=== PATIENT | male | born 1935 | race Caucasian/White ===

== ENCOUNTER 2016-06-21 08:19 | Inpatient (IN) | payer MEDICARE, OTHER ==
[2016-06-21] MEDS ORDERED: IPRATROPIUM/ALBUTEROL 0.5/3 MG 3 ML AMPUL.NEB INHALATION ONE ×2 (08:37→10:01)
[2016-06-21 08:44] LABS: BASOPHIL# 0.1 X 10^3uL (0.0-0.1); BASOPHILS 0.7 % (0.0-2.0); EOSINOPHILS 2.8 % (0.0-6.0); EOSINOPHILS# 0.2 X 10^3uL (0.0-0.4); HEMATOCRIT 47.4 % (42.0-54.0); HEMOGLOBIN 16.2 g/dL (14.0-18.0); LYMPHOCYTES 23.6 % (20.0-40.0); MEAN CELL VOLUME 90.3 fL (80.0-100.0); MEAN CORPUS. HGB CONCENTRATION 34.2 g/dL (32.0-36.0); MEAN CORPUSCULAR HEMOGLOBIN 30.9 pg (29.0-35.0); MEAN PLATELET VOLUME 9.1 fL (7.4-10.4); MONOCYTES 8.9 % (2.0-10.0); MONOCYTES# 0.7 X 10^3uL (0.2-1.0); NEUTROPHILS# 5.4 X 10^3uL (2.6-6.7); PLATELET COUNT 196 X 10^3uL (130-440); RED BLOOD COUNT 5.24 X 10^6uL (4.20-6.10); RED CELL DISTRIBUTION WIDTH 12.8 % (11.5-14.5); WHITE BLOOD COUNT 8.4 X 10^3uL (3.9-10.7)
[2016-06-21 08:51] LABS: BLOOD UREA NITROGEN 41 mg/dL (9-20); CALCIUM 9.7 mg/dL (8.4-10.2); CHLORIDE 99 mmol/L (98-107); CREATININE 1.1 mg/dL (0.7-1.3); EST GLOMERULAR FILTRATION RATE > 60 mL/min; POTASSIUM 4.3 mmol/L (3.5-5.1); SODIUM 134 mmol/L (137-145)
[2016-06-21] MEDS ORDERED: METHYLPREDNISOLONE SOD 125 MG/2 ML VIAL ONE (08:54)
[2016-06-21 09:18] LABS: GLUCOSE 238 mg/dL (70-100)
[2016-06-21] MEDS ORDERED: ALBUTEROL 0.083% 2.5 MG/3 ML VIAL.NEB INHALATION ONE (09:20)
--- NOTE | 2016-06-21 10:05 | CT REPORT ---
HISTORY: Increased d-dimer COMPARISON: 08/01/2013 TECHNIQUE: This examination was performed using automated exposure control, adjustment of mA or kV according to patient size, and/or use of iterative reconstruction technique. Axial CT imaging from the thoracic i nlet through the upper abdomen following administration of IV contrast during peak opacification of t he pulmonary arteries, multiplanar reformatted and 3-D images are evaluated. 100cc Isovue 300 contrast. FINDINGS: The thoracic aorta appears normal. There is normal enhancement within the pulmonary arteries. No evid ence for pulmonary embolism. The pulmonary arteries are normal in size. There is mild cardiomegaly. There is no pericardial or pleural effusion. There is no abnormal adenopa thy. The upper abdominal structures are unremarkable. A small, 3 to 4 mm nodule in the right middle lobe is stable. There is mild dependent bibasilar atele ctasis. There is no focal consolidation. IMPRESSION: No evidence for pulmonary embolism. The thoracic aorta appears normal. There is moderate cardiomegaly. Right middle lobe 4 mm nodule is stable. Final Electronic Signature: This report was electronically signed by Shree Ervin MD on 06/21/2016 10 :03 AM. noé /
[2016-06-21] MEDS ORDERED: MAG-AL PLUS XS SUSP 30 ML UDC PO PRN (10:29)
[2016-06-21] MEDS ORDERED: ACETAMINOPHEN 325 MG TABLET PO PRN (10:29)
[2016-06-21] MEDS ORDERED: HOME MEDICATION LIST NEEDED 1 EA EACH MC ONE (10:29)
--- NOTE | 2016-06-21 11:46 | ER PHYSICIAN DOCUMENTATION ---
Physician Documentation [facility] Name:Joaquin Mckeon IV Age:81 yrs Sex:Male :1935 Arrival Date:06/21/2016 Time:08:19 Bed1 Private MD:John Medrano ED, Chris Disposition: 06/21 10:21 Critical Care: not applicable. cd 10:50 Chart complete. cd Disposition: 06/21/16 10:23 Admit ordered for Elle Monroe. Preliminary diagnosis are Dyspnea, Bronchospasm- Acute, Wheezing. - Bed requested for Medical/Surgical. - Condition is Fair. - Problem is an acute exacerbation. - Symptoms have improved. 23 HR OBS Yes HPI: 08:25 This 81 yrs old Male presents to ER via Private Vehicle with complaints of cd Breathing Difficulty. 08:25 The patient has shortness of breath at rest, that occurred at home, and the patient has cd a history of recent illness over the past month. The patient started with Flu-like symptoms, developed wheezing and shortness of breath. He was recently see by his PCP and placed on a Z-Pack and Prednisone without significant relief. Early this morning he became much worse while lying flat and his found him to be sitting up quite SOB. He has also been on MDI in the past, but does not have any CAD, Asthma or COPD history. The patient denies history of PE or CHF. He denies Lung Cancer or other lung disease.. Onset: The symptom(s)/episode began/occurred 1 month(s) ago, and became worse this morning. Duration: The symptoms are continuous, and are steadily getting worse. Associated signs and symptoms: Pertinent positives: productive cough, Pertinent negatives: chest pain, diaphoresis, fever, hemoptysis, vomiting. Severity of symptoms: At their worst the symptoms were moderate in the emergency department the symptoms are unchanged. The patient has experienced similar episodes in the past, multiple times, and the symptoms today are exactly the same, throughout the past month. Historical: - Allergies: Allopurinol; Lisinopril; - Home Meds: 1. Prednisone Oral 2. z-pack 3. losartan oral 4. testosterone buccal 5. Indomethacin Oral 6. tiotropium 7. sildenafil oral 8. Flonase Nasal 9. ProAir HFA inhalation 10. Gemfibrozil Oral 11. Colchicine Oral 12. Clonazepam Oral 13. Prilosec Oral 14. terazosin oral 15. Maxzide Oral 16. Metoprolol Tartrate Oral - PMHx: GOUT; CAD; HYPERTENSION; - PSHx: Bowel rescetion; APPENDECTOMY; Ortho repairs, multiple; - Tetanus: < 10 years. - Ebola Screening: : Patient denies exposure to infectious person. Patient denies travel to an Ebola-affected area in the 21 days before illness onset. . - Immunization history: Pneumococcal vaccine is up to date, Flu Vaccine < 1 year. - Social history: Smoking status: Patient states former smoker of tobacco. Patient uses alcohol occasionally. Patient/guardian denies using marijuana. ROS: 10:20 Eyes: Negative for injury, pain, redness, discharge, blurry vision and loss of vision. cd Neck: Negative for injury, pain, stiffness and swelling. Abdomen/GI: Negative for abdominal pain, nausea, vomiting, diarrhea, constipation, distension, melena, hematochezia and hematemesis. Back: Negative for injury, pain or muscle spasms. : Negative for injury, bleeding, discharge, swelling, dysuria, frequency or urgency. MS/Extremity: Negative for injury, deformity, edema, calf tenderness, pain or coldness. Skin: Negative for injury, rash, itching and discoloration. 10:20 Neuro: Negative for headache, weakness, numbness, tingling, and seizure. cd 10:20 Constitutional: Positive for poor PO intake, Negative for chills, fever. 10:20 ENT: Negative for ear pain, rhinorrhea, sinus congestion, sinus pain, sore throat. 10:20 Cardiovascular: Negative for chest pain, edema, palpitations. 10:20 Respiratory: Positive for cough, with white sputum, dyspnea on exertion, orthopnea, shortness of breath, wheezing, Negative for hemoptysis, pleurisy. 10:20 All other systems are negative. Exam: Head/Face: Normocephalic, atraumatic. Eyes: Pupils equal round and reactive to light, extra-ocular motions intact. Lids and lashes normal. Conjunctiva and sclera are non-icteric and not injected. Cornea within normal limits. Periorbital areas with no swelling, redness, or edema. ENT: Nares patent. No nasal discharge, no septal abnormalities noted. Tympanic membranes are normal and external auditory canals are clear. Oropharynx with no redness, swelling, or masses, exudates, or evidence of obstruction, uvula midline. Mucous membranes dry Neck: Trachea midline, no thyromegaly or masses palpated, and no cervical lymphadenopathy. Supple, full range of motion without nuchal rigidity, or vertebral point tenderness. No Meningismus. Chest/axilla: Normal chest wall appearance and motion. Nontender with no deformity. No lesions are appreciated. Abdomen/GI: Soft, non-tender, with normal bowel sounds. No distension or tympany. No guarding or rebound. No evidence of tenderness throughout. Back: No spinal tenderness. No costovertebral tenderness. Full range of motion. Skin: Warm, dry with normal turgor. Normal color with no rashes, no lesions, and no evidence of cellulitis. MS/ Extremity: Pulses equal, no cyanosis. Neurovascular intact. Full, normal range of motion. 10:30 Neuro: Awake and alert, GCS 15, oriented to person, place, time, and situation. cd Cranial nerves II-XII grossly intact. Motor strength 5/5 in all extremities. Sensory grossly intact. Cerebellar exam normal. Normal gait. 10:30 Constitutional: The patient appears alert, awake, non-diaphoretic, non-toxic, well developed, well nourished, anxious, in obvious distress, moderately distressed. 10:30 Cardiovascular: Rate: normal, Rhythm: regular, Pulses: no pulse deficits are appreciated, Heart sounds: normal, Edema: is not appreciated, JVD: is not appreciated. 10:30 Respiratory: moderate respiratory distress is noted, Respirations: labored breathing, that is mild, prolonged exhalation, that is moderate, pursed lip breathing, is not present, intercostal retractions, are absent, shallow respirations, that is mild, tachypnea, that is mild, Breath sounds: rales, are not appreciated, rhonchi, that are moderate, wheezing, that is moderate, is scattered, is heard diffusely, bronchial sounds, that are moderate, decreased breath sounds, are located in both bases. Vital Signs: 08:23 BP 147 / 88 (auto/); Pulse 66; Resp 24; Temp 97.7; Pulse Ox 93% on R/A; Pain 0/10; st 08:27 Pulse Ox 94% ; st 09:13 BP 152 / 78 (auto/); Pulse 59; st 09:17 Pulse Ox 99% ; st 09:45 BP 149 / 63 (auto/); Pulse 55; st 09:47 Pulse Ox 96% ; st 09:51 Pulse 69; Pulse Ox 91% on R/A; st 10:30 BP 157 / 80 (auto/); Pulse 49; st 10:32 Pulse Ox 94% ; st 11:43 Pulse 63; Resp 20; Pulse Ox 97% ; st 08:23 pt has a hx of a slower heart rate. st Lynnette Coma Score: 10:30 Eye Response: spontaneous(4). Verbal Response: oriented(5). Motor Response: obeys cd commands(6). Total: 15. MDM: 08:26 Patient medically screened. cd 08:30 Data interpreted: Pulse oximetry: on room air is 93 %. Interpretation: normal. cd 08:35 Differential diagnosis: asthma, Bronchitis CHF exacerbation, Chronic Obstructive cd Pulmonary Disease Myocardial Infarction pneumonia, pulmonary edema, Pulmonary Embolism reactive airway disease. 08:50 Physician consultation: Elle Monroe DO was called at 08:45, was contacted at 08:45, cd regarding admission, to the floor, consult, patient's condition, need to come to ED to see patient, and will see patient in ED, later today. Admission orders: after a detailed discussion of the patient's condition and case, the admit orders are written by me. 09:15 Test interpretation: by ED physician or midlevel provider: plain radiologic studies, cd CXR negative for any definite infiltrates, possible early LLL changes.. 10:00 The patient's pulmonary embolism risk score was calculated as follows: Total Score: 0-2 cd points. This patient was found to be at low risk for a pulmonary embolism by using the Well's assessment criteria. Data reviewed: vital signs, nurses notes, old medical records, and as a result, I will continue to observe the patient, administer IV fluids, NS bolus, NS maintenence, and give Duonebs, administer steroids, Solumedrol. 10:15 Counseling: I had a detailed discussion with the patient and/or guardian regarding: the cd historical points, exam findings, and any diagnostic results supporting the discharge/admit diagnosis, lab results, radiology results, the need for further work-up and treatment in the hospital. Response to treatment: the patient's symptoms have markedly improved after treatment, and as a result, I will admit patient. 10:15 ED course: After review of the chart, I see the patient is still on Metoprolol. He and cd his have complained of episodes of Bradycardia, where is pulse goes down into the 30's and low 40's. His reports that he becomes cranky during these episodes and feels weak and dizzy, but does not have any Chest Pain. His EKG reveals RBBB but is otherwise normal. His Troponin is normal. He continues to be on Metoprolol during his recent illness with Bronchospasm and wheezing. I discussed possibly holding the patient's Metoprolol while as an in-patient. This B-d[place] may be contributing to the patient's bronchospasm, bradycardia and Depression.. 10:25 Antibiotic administration: Not indicated, the patient does not have an appreciated cd infiltrate. 06/21 08:46 Order name: CBC AUTO DIF, MDIF/RMOR IF IND; Complete Time: 09:22 EDME 06/21 09:22 Interpretation: Normal. 06/21 09:19 Order name: BASIC METABOLIC PANEL; Complete Time: 09:22 EDME 06/21 09:22 Interpretation: Normal Except: GLUCOSE 238; BLOOD UREA NITROGEN 41; Hyperglycemia. 06/21 09:20 Order name: DDIMER; Complete Time: 09:22 EDME 06/21 09:22 Interpretation: Abnormal: DDIMER 503; Elevated. 06/21 09:44 Order name: INFLUENZA A/B; Complete Time: 10:21 EDME 06/21 10:10 Interpretation: Normal. 06/21 10:24 Order name: SPUTUM CULTURE AND GRAM STAIN [facility] 06/22 11:02 Interpretation: Abnormal: SPUTUM GRAM STAIN 2+ GRAM POSITIVE COCCI IN CHAINS; SPUTUM cd GRAM STAIN 1+ GRAM NEGATIVE BACILLI; SPUTUM GRAM STAIN 1+ WHITE BLOOD CELLS; SPUTUM CULTURE GRAM NEGATIVE BACILLUS. 06/21 11:16 Order name: TROPONIN I; Complete Time: 11:02 EDME 06/22 11:02 Interpretation: Normal. 06/21 10:08 Order name: CAT SCAN; CHEST ANGIO 24260; Complete Time: 10:21 EDMS 06/21 10:11 Interpretation: Normal Except: See Report. 06/21 08:34 Order name: Oxygen; Complete Time: 08:40 06/21 08:34 Order name: Pulse Ox Continuous; Complete Time: 08:40 cd 04 08:34 Order name: Iv Saline Lock; Complete Time: 08:40 cd 06/21 10:38 Order name: EKG - 12 Lead; Complete Time: 10:38 st Dispensed Medications: 08:25 Drug: DuoNeb (Albuterol 2.5 mg, Atrovent 0.5 mg); 3 ml; Route: Nebulizer; st 09:19 Follow up: Response: No change in condition st 08:45 Drug: NS 0.9% 1000 ml; Route: IV; Rate: 1000 bolus; Site: right antecubital; st 09:44 Follow up: IV Status: Completed infusion; IV Intake: 1000ml st 08:45 Drug: Solu-MEDROL 125 mg; Route: IVP; Site: right antecubital; st 09:13 Drug: Albuterol 2.5 mg; Route: Inhalation; st 09:51 Drug: DuoNeb (Albuterol 2.5 mg, Atrovent 0.5 mg); 3 ml; Route: Nebulizer; st 11:44 Follow up: Response: breathing easier st 09:52 Drug: NS 0.9% 1000 ml; Route: IV; Rate: 150 ml/hr; Site: right antecubital; st 11:44 Follow up: IV Status: Infusion continued upon admission st Signatures: Jazmin Ames, RN RN Kian Arevalo MD MD cd
--- NOTE | 2016-06-21 11:46 | ER NURSING DOCUMENTATION ---
Nurse's Notes [facility] Name:Joaquin Mckeon IV Age:81 yrs Sex:Male :1935 Arrival Date:06/21/2016 Time:08:19 Bed1 Private MD:John Medrano Diagnosis:Dyspnea;Bronchospasm- Acute;Wheezing Presentation: 06/21 08:20 Presenting complaint: Patient states: pt has had a cough for 2-3 weeks. he has been on st a Z-pack and prednisone but is getting worst not better. Last night pt could not lay flat to sleep and he feels SOB. 08:20 Transition of care: Home. st 08:20 Method Of Arrival: Private Vehicle st 08:24 Acuity: RACHEAL 3 st Triage Assessment: 08:20 General: Appears uncomfortable, Behavior is cooperative. Pain: Denies pain. Neuro: No st deficits noted. Cardiovascular: Capillary refill < 3 seconds Heart tones present. Respiratory: Airway is patent Respiratory effort is even, labored, Respiratory pattern is regular, symmetrical, Breath sounds are diminished bilaterally. Breath sounds with wheezes bilaterally. Reports shortness of breath at rest on exertion cough that is non-productive, Onset: The symptoms/episode began/occurred pt has had the cough for 2-3 weeks but the SOB is new. , the patient has moderate shortness of breath. GI: No deficits noted. : No deficits noted. Historical: - Allergies: Allopurinol; Lisinopril; - Home Meds: 1. Prednisone Oral 2. z-pack 3. losartan oral 4. testosterone buccal 5. Indomethacin Oral 6. tiotropium 7. sildenafil oral 8. Flonase Nasal 9. ProAir HFA inhalation 10. Gemfibrozil Oral 11. Colchicine Oral 12. Clonazepam Oral 13. Prilosec Oral 14. terazosin oral 15. Maxzide Oral 16. Metoprolol Tartrate Oral - PMHx: GOUT; CAD; HYPERTENSION; - PSHx: Bowel rescetion; APPENDECTOMY; Ortho repairs, multiple; - Tetanus: < 10 years. - Ebola Screening: : Patient denies exposure to infectious person. Patient denies travel to an Ebola-affected area in the 21 days before illness onset. . - Immunization history: Pneumococcal vaccine is up to date, Flu Vaccine < 1 year. - Social history: Smoking status: Patient states former smoker of tobacco. Patient uses alcohol occasionally. Patient/guardian denies using marijuana. Screenin:17 Infectious Disease Risk None. Abuse screen: Denies threats or abuse. Denies injuries st from another. pt feels safe at home. Nutritional screening: No deficits noted. Assessment: 09:12 General: lungs remain tight. . st 09:49 General: pt continues to be tight and wheezy . st 11:42 General: pt is still tight but is not working hard to breath any more.. st Vital Signs: 08:23 BP 147 / 88 (auto/); Pulse 66; Resp 24; Temp 97.7; Pulse Ox 93% on R/A; Pain 0/10; st 08:27 Pulse Ox 94% ; st 09:13 BP 152 / 78 (auto/); Pulse 59; st 09:17 Pulse Ox 99% ; st 09:45 BP 149 / 63 (auto/); Pulse 55; st 09:47 Pulse Ox 96% ; st 09:51 Pulse 69; Pulse Ox 91% on R/A; st 10:30 BP 157 / 80 (auto/); Pulse 49; st 10:32 Pulse Ox 94% ; st 11:43 Pulse 63; Resp 20; Pulse Ox 97% ; st 08:23 pt has a hx of a slower heart rate. st Alma Coma Score: 10:30 Eye Response: spontaneous(4). Verbal Response: oriented(5). Motor Response: obeys cd commands(6). Total: 15. ED Course: 08:20 Patient arrived in ED. ama 08:20 John Medrano MD is Private Physician. ama 08:20 Valuables Remains with patient Patient has correct armband on for positive st identification. Bed in low position. Call light in reach. Pulse ox on. NIBP on. 08:24 Jazmin Ames RN is Primary Nurse. st 08:[address] 08:26 Kian William MD is Attending Physician. cd 08:33 Inserted peripheral IV: 20 gauge in right antecubital area and blood collected. st 08:36 Port Xray Completed. pm1 09:[address] 09:[address] 09:[address] francisca 09:51 Patient moved back from [address]. francisca 09:58 Oxygen Oxygen administration via nasal cannula @ 2L/min. st 10:21 Elle Monroe DO is Admitting Physician. cd 10:38 EKG done per protocol. Performed by ED Staff. Shown to ED physician. st Administered Medications: 08:25 Drug: DuoNeb (Albuterol 2.5 mg, Atrovent 0.5 mg); 3 ml; Route: Nebulizer; st 09:19 Follow up: Response: No change in condition st 08:45 Drug: NS 0.9% 1000 ml; Route: IV; Rate: 1000 bolus; Site: right antecubital; st 09:44 Follow up: IV Status: Completed infusion; IV Intake: 1000ml st 08:45 Drug: Solu-MEDROL 125 mg; Route: IVP; Site: right antecubital; st 09:13 Drug: Albuterol 2.5 mg; Route: Inhalation; st 09:51 Drug: DuoNeb (Albuterol 2.5 mg, Atrovent 0.5 mg); 3 ml; Route: Nebulizer; st 11:44 Follow up: Response: breathing easier st 09:52 Drug: NS 0.9% 1000 ml; Route: IV; Rate: 150 ml/hr; Site: right antecubital; st 11:44 Follow up: IV Status: Infusion continued upon admission st Intake: 09:44 IV: 1000ml; Total: 1000ml. st Outcome: 10:23 Decision to Admit by Provider. cd 11:41 Admitted to Med/surg accompanied by nurse, via stretcher, with oxygen. st 11:41 Condition: improved 11:41 Report given to Tom RN 11:41 Instructed on need to admit 11:45 Patient [address] the ED. st Signatures: Jazmin Ames, RN RN Kian Arevalo MD MD cd Abbott, Rochelle Loyd pm1 Chris Avalos, Reg Reg ama
[2016-06-21] MEDS: IPRATROPIUM/ALBUTEROL 0.5/3 MG 3 ML AMPUL.NEB INHALATION SCH ×4 (12:46→23:51)
[2016-06-21] MEDS: NORMAL SALINE 1,000 ML IV SCH ×2 (12:46→18:55)
[2016-06-21] MEDS ORDERED: ALBUTEROL HFA 1 INH INHALER INHALATION PRN ×2 (12:46→14:18)
[2016-06-21] MEDS ORDERED: DEXTROSE 50% WATER 25 GM/50 ML SYR IV PRN (12:54)
[2016-06-21] MEDS ORDERED: O2 HUMIDIFIER 650 ML BOTTLE INHALATION ONE (14:47)
[2016-06-21] MEDS ORDERED: METHYLPREDNISOLONE SOD 125 MG/2 ML VIAL IV SCH (15:00)
[2016-06-21] MEDS ORDERED: INSULIN LISPRO 100 UNIT/ML ML SUBCUT SCH ×2 (17:00→20:00)
--- NOTE | 2016-06-21 17:21 | HISTORY & PHYSICAL ---
DATE OF ADMISSION: 06/21/16 ATTENDING PHYSICIAN: Elle Monroe MD PRIMARY CARE PHYSICIAN: John Medrano MD CHIEF COMPLAINT: Shortness of breath. HISTORY OF PRESENT ILLNESS: The patient is a 81-year-old gentleman who was seen in our clinic on 06/02/16 and 06/17/16 for URI/bronchitis complaints. Patient and states that he has had minimal improvement in symptoms and has had progressive decline and worsening in symptoms throughout this time frame. After his first evaluation, it was felt it was likely viral etiology and he was continuing to monitor his symptoms but they did significantly worsen and was evaluated this week and started on a Azithromycin and steroid burst. Patient states that he had minimal change in his symptoms since that visit and this morning, when his awoke, she found him sitting up in bed wheezing and having some difficulties breathing. At that time, they discussed his symptoms and his ongoing concerns and they decided to come into the Emergency Room for further evaluation. notes that this last month, he has had significant increase fatigue and change in his typical personality, and he has been seeming a little bit more off , especially increased crankiness and other symptoms. He does have home inhalers as Spiriva and Albuterol but patient states that he does not truly have a diagnosis of COPD but has had chronic shortness of breath and cough in the past. Interestingly, patient has had an evaluation for fluctuating heart rate over the last year. About 1 year ago he was trying to give blood and was denied because his heart rate was so low. He did have follow up with Dr. Medrano and Dr. Conley who did Holter evaluation and noted some PVCs and PACs. He was started on Metoprolol and had some improvement in the irregularities but still ongoing symptoms, so his dose was increased, and he was told to follow up within a year. In the Emergency Room today, his heart rate was noted to be as low as 35 and would jump up to the 90s and pretty variable. Definitely bradycardia could be a contributing factor to his worsening fatigue as well as his potential bronchospasms and respiratory concern. PAST MEDICAL HISTORY 1. PVCs and PACs. 2. History of obstructive sleep apnea, patient does not use a CPAP machine. 3. Restless legs. 4. Hypotestosteronism. 5. Hyperlipidemia, triglyceridemia. 6. Gastroesophageal reflux disease. 7. Gout. 8. Osteoarthritis. 9. Hypertension. PAST SURGICAL HISTORY 1. Right neck mass 2014. 2. Hemicolectomy 2009. 3. Right middle finger 2005 4. Right foot 2005. 5. Appendectomy that was ruptured in 1994. 6. Right knee 1957. SOCIAL HISTORY: to his Hermila who is here today. He is a former smoker. He does have an alcohol history of 1-2 glasses per night. FAMILY HISTORY: Father at age 96 related to hypertension. Mother at 87. Sister had palate cancer and lymphoma. MEDICATIONS: 1. Prednisone 5mg, 7 daily then taper down (was started on 06/17)- patient was to take 15mg today 2. Azithromycin on day 06/18 3. Maxaide 37.5/25 1 po daily 4. Prilosec 20 po daily 5. Metoprolol tartrate 50mg daily 6. Spriva every morning 7. Clonazepam 0.5mg po qhs (RLS) 8. Colchicine-Probenecid daily 9. Gemfibrozil 600 mg bid 10. Proair 2 puffs inhaled as needed 11. Flonase daily 12. Indomethacin prn gout 13. Sildenafil 100mg prn 14. Testosterone replacement ALLERGIES: Lisinopril, Andoderm patch, Allopurinol REVIEW OF SYSTEMS GENERAL: Most notable for fatigue and malaise. No true fevers or chills. HEENT: No headache. No visual changes. No sore throat. NECK: No significant pain. RESPIRATORY: Positive for cough, shortness of breath or wheezing. He has had minimal sputum production but was able to produce sputum today in the Emergency Room. CARDIOVASCULAR: Notable for irregular heart rate in between bradycardia and then skipped beats at times. Patient denies any chest pain. ABDOMEN: No abdominal upset related to medications. No diarrhea or medications. EXTREMITIES: No rash or edema. NEURO: No focal neurological changes. PSYCHIATRIC: Patient has noted to be a little bit more fatigued as well as cranky and irritable recently. LABORATORY DATA: Patient had a CBC which showed a white count of 8.4, hemoglobin 16.2, hematocrit 47.4, platelets of 196. BMP showed a sodium of 134, potassium 4.3, chloride 99, bicarb 25, BUN 41, creatinine 1.1, glucose of 238. A D-Dimer was elevated at 503 and influenza A and B negative. Troponin less than 0.12. Patient had a chest x-ray with no focal findings. He did have a CT chest related to his elevated D-Dimer which showed no pulmonary embolism. He had mild cardiomegaly and a stable right middle lobe nodule that was 4 mm. Sputum culture so far was 2+ gram positive cocci and chains and 1+ gram negative bacilli. PHYSICAL EXAMINATION VITAL SIGNS: Temperature 36.6, blood pressure 136/82, pulse 60, respiratory rate 20 and he is 95% on 2 liters. He was noted to be about 91% on room air. GENERAL: In no acute distress. He is sitting comfortably in the bed and talking in full sentences. No respiratory distress noted. HEENT: Oropharynx is clear. Moist mucous membranes. NECK: Supple no lymphadenopathy noted. CARDIOVASCULAR: Normal S1, S2. No murmur appreciated. RESPIRATORY: Patient has no increased respiratory rate at this time. He was not having any retractions. His exam is consistent with bilateral and expiratory wheezing and tightness. ABDOMEN: Soft, nontender, nondistended. EXTREMITIES: Moves all extremities without difficulties and no edema noted. NEUROLOGIC: Patient is grossly nonfocal. PSYCHIATRIC: He is alert and oriented x3. Normal mood and normal affect. ASSESSMENT/PLAN: This is a 81-year-old gentleman with a history of hypertension , hyperlipidemia, cardiac arrhythmia, presenting with greater than 5 weeks of an URI bronchitis symptoms that is failing outpatient therapy. 1. Bronchitis. No focal pneumonia was noted on either chest x-ray or CT of chest , but he does have 2+ gram positive cocci and chains and 1+ gram negative bacilli in his sputum culture. He has completed about 4 of the 5 days of Azithromycin as an outpatient and ongoing symptoms. He was given dose of Ceftriaxone in the Emergency Department. Will continue to monitor to see if we need to further broaden coverage based on symptoms as well as sputum. He does have blood cultures pending, but if he does spike a fever, will need blood cultures. Will monitor patient in observation status in the hospital in hopes to transition to potential different oral agent for treatment. 2. Wheezing and bronchospasm. Patient states that he does not have a history of chronic obstructive pulmonary disease or asthma, although he does have home inhalers and Spiriva. Minimal improvement in his symptoms with his home inhalers , but has had some significant change based on the Duoneb therapy in the Emergency Department. Will continue Duoneb q.4 and have additional Albuterol ordered as needed. Will transition his oral Prednisone to IV Solu-Medrol and monitor his response. With his progressive symptoms over this last month, told patient will need to closely monitor and anticipate that he may need more than 1 night stay. 3. Hyponatremia. This is likely just secondary to dehydration. Will encourage p.o. fluids and IV and again replete with IV fluids. 4. Elevated D-Dimer. Again likely related to acute illness. CT pulmonary embolism was negative. 5. Elevated glucose. This is likely secondary to the recent Prednisone burst. Patient does not have history of diabetes. I have ordered for additional glucose testing and sliding scale insulin ordered since he was started on IV Solu-Medrol for additional respiratory support. May need to monitor steroid dose pending ongoing sugars. Hemoglobin A1c ordered. 6. Bradycardia with history of PACs and PVCs. Patient is currently on Metoprolol 50 mg and his heart rate has been noted to be rather low in the Emergency Department. This bradycardia could be contributing to some of his symptoms as well as beta-blockade could be making his breathing issues slightly worse. Will hold his Metoprolol at this time and monitor patient on telemetry. Did discuss that with the Albuterol treatments, this can increase the heart and if progressively worsening, may need to restart at a lower dose. If patient is still here on Thursday, could ask for Cardiology at that time, as he has seen Dr. Conley for this problem in the past. 7. Restless leg syndrome. Will continue his Clonazopam at night. 8. Hyperlipidemia. Patient is on Gemfibrozil. Since this is not formulary will hold and have him restart as an outpatient. 9. Gout. Currently not having symptoms. Is on a steroid burst, but will continue his home medications. 10. Prophylaxis. Will treatment with Lovenox. Copies to: John Medrano MD [email or web address]
[2016-06-21] MEDS: TERAZOSIN HCL 5 MG CAPSULE PO SCH (20:16)
[2016-06-21] MEDS: clonazePAM 0.5 MG TABLET PO SCH (20:16)
[2016-06-21] MEDS: INSULIN LISPRO 100 UNIT/ML ML SUBCUT SCH (22:00)
[2016-06-21] MEDS: METHYLPREDNISOLONE SOD 125 MG/2 ML VIAL IV SCH (22:57)
[2016-06-22] MEDS: METHYLPREDNISOLONE SOD 125 MG/2 ML VIAL IV SCH ×4 (05:07→21:19)
[2016-06-22] MEDS: IPRATROPIUM/ALBUTEROL 0.5/3 MG 3 ML AMPUL.NEB INHALATION SCH ×5 (05:07→20:20)
[2016-06-22 06:34] LABS: BASOPHILS 0.1 % (0.0-2.0); HEMATOCRIT 46.5 % (42.0-54.0); HEMOGLOBIN 15.4 g/dL (14.0-18.0); LYMPHOCYTES 7.1 % (20.0-40.0); LYMPHOCYTES# 0.6 X 10^3uL (0.8-3.8); MEAN CELL VOLUME 91.3 fL (80.0-100.0); MEAN CORPUS. HGB CONCENTRATION 33.1 g/dL (32.0-36.0); MEAN CORPUSCULAR HEMOGLOBIN 30.2 pg (29.0-35.0); MEAN PLATELET VOLUME 9.3 fL (7.4-10.4); MONOCYTES 1.9 % (2.0-10.0); MONOCYTES# 0.2 X 10^3uL (0.2-1.0); NEUTROPHILS# 7.6 X 10^3uL (2.6-6.7); PLATELET COUNT 159 X 10^3uL (130-440); RED BLOOD COUNT 5.09 X 10^6uL (4.20-6.10); RED CELL DISTRIBUTION WIDTH 13.1 % (11.5-14.5); WHITE BLOOD COUNT 8.4 X 10^3uL (3.9-10.7)
[2016-06-22 06:50] LABS: A/G RATIO 1.4; ALBUMIN 3.9 g/dL (3.5-5.0); ALKALINE PHOSPHATASE 70 U/L (38-126); ALT 34 U/L (21-72); AST 21 U/L (17-59); BILIRUBIN, TOTAL 0.8 mg/dL (0.2-1.3); BLOOD UREA NITROGEN 35 mg/dL (9-20); CALCIUM 8.8 mg/dL (8.4-10.2); CHLORIDE 105 mmol/L (98-107); CREATININE 0.9 mg/dL (0.7-1.3); EST GLOMERULAR FILTRATION RATE > 60 mL/min; POTASSIUM 4.2 mmol/L (3.5-5.1); SODIUM 134 mmol/L (137-145); TOTAL PROTEIN 6.7 g/dL (6.3-8.2)
[2016-06-22 07:00] LABS: GLUCOSE 278 mg/dL (70-100)
[2016-06-22 07:06] LABS: NEUTROPHILS 90.9 % (54.0-75.0)
[2016-06-22] MEDS: INSULIN LISPRO 100 UNIT/ML ML SUBCUT SCH ×4 (07:44→21:19)
[2016-06-22] MEDS: ENOXAPARIN SODIUM 40 MG/0.4 ML SYR SUBCUT SCH (08:30)
[2016-06-22] MEDS: HCTZ PO SCH (08:30)
[2016-06-22] MEDS: TRIAMTERENE PO SCH (08:30)
[2016-06-22] MEDS ORDERED: TRIAMTERENE PO SCH (09:00)
[2016-06-22] MEDS ORDERED: PROBENECID PO SCH (09:00)
[2016-06-22] MEDS ORDERED: HCTZ PO SCH (09:00)
[2016-06-22] MEDS ORDERED: cefTRIAXone SODIUM 1,000 MG/10 ML VIAL IV SCH (09:00)
[2016-06-22] MEDS ORDERED: COLCHICINE PO SCH (09:00)
[2016-06-22] MEDS: [UNRECOGNIZED DRUG - REMARK] PO SCH (09:37)
[2016-06-22] MEDS: NORMAL SALINE MINI IV SCH (09:42)
[2016-06-22] MEDS: CEFTRIAXONE SODIUM IV SCH (09:42)
--- NOTE | 2016-06-22 10:47 | PROGRESS NOTE: IM APSO ---
Assessment and Plan - Date of Encounter Date of Encounter: 06/22/16 (1) Bronchitis Status: Acute Assessment and plan: Patient was treated with 4 days of azithromycin and prednisone as outpatient with minimal change in symptoms. Sputum culture today growing gram negative bacillus. I will start ceftriaxone, as patient has no significant risk factors for psuedomonas (if however not responding or culture indicating, will need change in antibiotics for coverage). Decreased solumedrol from 125mg to 60 mg due to ongoing hyperglycemia and is continuing to respond to therapy. At this time still needing q4 hour nebs. Goal to continue current managment plan and transition to oral agents when appropriate. Anticipate d/c in 1-2 days pending ongoing response and cultures. Current Visit: Yes (2) Wheezing Status: Acute Assessment and plan: patient with chronic history of cough/shortness of breath and has seen pulmonology in past. No clear diagnosis of COPD or asthma but does have spiriva and albuterol inhalers as outpatient. Current infection with obvious flare in reactive airway. Slowly responding to steroids/neb treatments. Continue aggressive management today in hopes to transition to oral regimen in next few days. Current Visit: Yes (3) Hyperglycemia Status: Acute Assessment and plan: Likely related to current steroids (has been on steroids since 06/17/16). BS over 400/500 however with 125mg dose of solumedrol- sliding scale insulin in place. with decrease in solumedrol to 60mg BS now more in the 200-300 range but still elevated. Interestingly brought in recent rheumatology labs with a BS of 175 from 06/16 (prior to steroids). Hemoglobin A1c is pending. Current Visit: Yes (4) Hyponatremia Status: Acute Assessment and plan: Mild- Likely related to hospitalization/fluids/medications. Did have normal sodium on 06/16/16. Is on triamterene/hctz- may need adjustment in diuretic if ongoing hyponatremia. Continue to monitor. Current Visit: Yes (5) Bradycardia Status: Chronic Assessment and plan: Ongoing variable pulse with admission. have held BB and HR today more in 70- 90s rather than the low of 35 noted yesterday in ED. with ongoing nebulizer treatments do anticipate some tachycardia. May need to restart metoprolol at lower dose. Current Visit: Yes (6) Gout Status: Chronic Assessment and plan: no concerns, have continued home meds. Current Visit: Yes (7) Restless leg syndrome Status: Chronic Assessment and plan: continue home meds Current Visit: Yes - Time Spent With Patient Total time spent with greater than 50% in coordination of care (as documented) at patient's floor/unit and/or counseling patient: Greater than 35 minutes Estimated anticipated discharge: 1-2 days IM: PN Subjective Interval history: Feeling better than yesterday but with ongoing wheezing and hyperglycemia General: fatigue, no fever, no chills HEENT: no headache, no sore throat Cardiovascular: no chest pain, no palpitations, no dizziness Respiratory: cough, sputum, wheeze, SOB (improved) Gastrointestinal: abdominal pain, vomiting, no nausea, no diarrhea Musculoskeletal: no pain Integumentary: no rashes Neurological: no headache IM: PN Objective Exam - I&O/Vital Signs I&O: Intake & Output 06/21/16 06/22/16 06/22/16 21:59 05:59 13:59 Intake Total 800 2300 Output Total 750 1000 Balance 50 1300 Weight 78 kg Intake: IV 1100 Right Antecubital 1100 Oral 800 1200 Output: Urine 750 1000 Other: Urine Appearance Clear Clear Urine Color Yellow Yellow Voiding Method Urinal Toilet # Voids 3 # Bowel Movements 0 Vital Signs: Last Vital Signs Temp 36.6 C 06/22/16 06:54 Pulse 95 H 06/22/16 08:00 Resp 20 06/22/16 06:54 BP 141/78 06/22/16 06:54 Pulse Ox 92 06/22/16 10:29 Oxygen Flow Rate 2 Oxygen Delivery Method Nasal Cannula - Constitutional General appearance: Present: cooperative. Absent: acute distress - Head Head exam: Present: atraumatic, normal inspection - Eye Eye exam: Present: EOMI. Absent: conjunctival injection - ENT ENT exam: Present: mucous membranes moist, normal oropharynx - Neck Neck exam: Present: normal inspection - Respiratory Respiratory exam: Present: prolonged expiratory phase, wheezes. Absent: accessory muscle use, respiratory distress - Cardiovascular Cardiovascular exam: Present: RRR - GI/Abdominal GI/Abdominal exam: Present: soft. Absent: tenderness - Neurological Exam Neurological exam: Present: alert, oriented X3 - Psychiatric Psychiatric exam: Present: normal affect, normal mood - Skin Skin exam: Absent: rash - Allied Health Notes Allied health notes reviewed: nursing - Lab Labs: Laboratory Last Values WBC 8.4 X 10^3uL (3.9-10.7) 06/22/16 06:20 RBC 5.09 X 10^6uL (4.20-6.10) 06/22/16 06:20 Hgb 15.4 g/dL (14.0-18.0) 06/22/16 06:20 Hct 46.5 % (42.0-54.0) 06/22/16 06:20 MCV 91.3 fL (80.0-100.0) 06/22/16 06:20 MCH 30.2 pg (29.0-35.0) 06/22/16 06:20 MCHC 33.1 g/dL (32.0-36.0) 06/22/16 06:20 RDW 13.1 % (11.5-14.5) 06/22/16 06:20 Plt Count 159 X 10^3uL (130-440) 06/22/16 06:20 MPV 9.3 fL (7.4-10.4) 06/22/16 06:20 Neutrophils % 90.9 % (54.0-75.0) H 06/22/16 06:20 Lymphocytes % 7.1 % (20.0-40.0) L 06/22/16 06:20 Eosinophils % 0.0 % (0.0-6.0) 06/22/16 06:20 Basophils % 0.1 % (0.0-2.0) 06/22/16 06:20 Neutrophils # 7.6 X 10^3uL (2.6-6.7) H 06/22/16 06:20 Lymphocytes # 0.6 X 10^3uL (0.8-3.8) L 06/22/16 06:20 Monocytes 1.9 % (2.0-10.0) L 06/22/16 06:20 Monocytes # 0.2 X 10^3uL (0.2-1.0) 06/22/16 06:20 Eosinophils # 0.0 X 10^3uL (0.0-0.4) 06/22/16 06:20 Basophils # 0.0 X 10^3uL (0.0-0.1) 06/22/16 06:20 D-Dimer 503 ng/mL H* 06/21/16 08:05 Sodium 134 mmol/L (137-145) L 06/22/16 06:20 Potassium 4.2 mmol/L (3.5-5.1) 06/22/16 06:20 Chloride 105 mmol/L (98-107) 06/22/16 06:20 Carbon Dioxide 19 mmol/L (22-30) L 06/22/16 06:20 BUN 35 mg/dL (9-20) H 06/22/16 06:20 Creatinine 0.9 mg/dL (0.7-1.3) 06/22/16 06:20 GFR Calculation > 60 mL/min 06/22/16 06:20 Glucose 278 mg/dL (70-100) H 06/22/16 06:20 Calcium 8.8 mg/dL (8.4-10.2) 06/22/16 06:20 Total Bilirubin 0.8 mg/dL (0.2-1.3) 06/22/16 06:20 AST 21 U/L (17-59) 06/22/16 06:20 ALT 34 U/L (21-72) 06/22/16 06:20 Alkaline Phosphatase 70 U/L (38-126) 06/22/16 06:20 Troponin I < 0.012 ng/mL (0.00-0.034) 06/22/16 06:20 Total Protein 6.7 g/dL (6.3-8.2) 06/22/16 06:20 Albumin 3.9 g/dL (3.5-5.0) 06/22/16 06:20 Albumin/Globulin Ratio 1.4 06/22/16 06:20 Influenza Types A,B Ag Inf a & b negative 06/21/16 09:20 Impressions: Sputum culture growing gram negative bacillus Quality Questions - VTE Prophylaxis Assessment VTE Present on Admission?: No Patient at risk for venous thromboembolism?: Yes VTE Risk Level: High Risk Pharmaceutical VTE prophylaxis contraindication reason: N/A- VTE prophylaxsis ordered Mechanical VTE prophylaxis contraindication reason: N/A- VTE prophylaxsis ordered
[2016-06-22] MEDS: NORMAL SALINE 1,000 ML IV SCH (16:12)
[2016-06-22] MEDS ORDERED: NORMAL SALINE 1,000 ML IV SCH (19:19)
[2016-06-22] MEDS: TERAZOSIN HCL 5 MG CAPSULE PO SCH (20:20)
[2016-06-22] MEDS: clonazePAM 0.5 MG TABLET PO SCH (20:20)
[2016-06-23] MEDS: IPRATROPIUM/ALBUTEROL 0.5/3 MG 3 ML AMPUL.NEB INHALATION SCH ×6 (00:58→19:43)
[2016-06-23] MEDS: METHYLPREDNISOLONE SOD 125 MG/2 ML VIAL IV SCH (03:45)
[2016-06-23] MEDS: PANTOPRAZOLE 40 MG TABLET PO SCH (06:31)
[2016-06-23 06:42] LABS: BASOPHIL# 0.1 X 10^3uL (0.0-0.1); BASOPHILS 0.7 % (0.0-2.0); HEMATOCRIT 45.5 % (42.0-54.0); HEMOGLOBIN 15.4 g/dL (14.0-18.0); LYMPHOCYTES 4.8 % (20.0-40.0); LYMPHOCYTES# 0.6 X 10^3uL (0.8-3.8); MEAN CELL VOLUME 90.9 fL (80.0-100.0); MEAN CORPUS. HGB CONCENTRATION 33.8 g/dL (32.0-36.0); MEAN CORPUSCULAR HEMOGLOBIN 30.8 pg (29.0-35.0); MEAN PLATELET VOLUME 9.2 fL (7.4-10.4); MONOCYTES 3.9 % (2.0-10.0); MONOCYTES# 0.4 X 10^3uL (0.2-1.0); NEUTROPHILS# 10.4 X 10^3uL (2.6-6.7); PLATELET COUNT 156 X 10^3uL (130-440); RED CELL DISTRIBUTION WIDTH 13.2 % (11.5-14.5); WHITE BLOOD COUNT 11.5 X 10^3uL (3.9-10.7)
[2016-06-23 06:49] LABS: NEUTROPHILS 90.6 % (54.0-75.0)
[2016-06-23 07:01] LABS: BLOOD UREA NITROGEN 28 mg/dL (9-20); CALCIUM 8.6 mg/dL (8.4-10.2); CHLORIDE 106 mmol/L (98-107); CREATININE 0.8 mg/dL (0.7-1.3); EST GLOMERULAR FILTRATION RATE > 60 mL/min; POTASSIUM 3.9 mmol/L (3.5-5.1); SODIUM 133 mmol/L (137-145)
[2016-06-23 07:22] LABS: GLUCOSE 305 mg/dL (70-100)
[2016-06-23] MEDS: ENOXAPARIN SODIUM 40 MG/0.4 ML SYR SUBCUT SCH (08:07)
[2016-06-23] MEDS: HCTZ PO SCH (08:07)
[2016-06-23] MEDS: TRIAMTERENE PO SCH (08:07)
[2016-06-23] MEDS: INSULIN LISPRO 100 UNIT/ML ML SUBCUT SCH ×4 (08:08→20:38)
[2016-06-23] MEDS: [UNRECOGNIZED DRUG - REMARK] PO SCH (08:08)
[2016-06-23] MEDS: CEFTRIAXONE SODIUM IV SCH (08:09)
[2016-06-23] MEDS: NORMAL SALINE MINI IV SCH (08:09)
[2016-06-23] MEDS ORDERED: NORMAL SALINE 1,000 ML IV SCH (09:16)
[2016-06-23] MEDS ORDERED: POLYETHYLENE GLYCOL 3350 17 GM POWD.PACK PO PRN (09:39)
[2016-06-23] MEDS ORDERED: METHYLPREDNISOLONE SOD 125 MG/2 ML VIAL IV SCH (10:00)
[2016-06-23] MEDS: METHYLPREDNISOLONE SOD IV SCH ×3 (10:01→21:34)
[2016-06-23] MEDS ORDERED: BENZOCAINE/MENTHOL 1 EACH LOZENGE PO PRN (15:36)
--- NOTE | 2016-06-23 17:10 | PROGRESS NOTE: IM SOAP ---
IM: PN Subjective Cardiovascular: no chest pain, no palpitations, no dizziness Respiratory: cough (improving), wheeze (improving), SOB (improved), no sputum Gastrointestinal: no abdominal pain, no nausea, no vomiting, no diarrhea IM: PN Objective Exam - I&O/Vital Signs Vital Signs: Last Vital Signs Temp 37.0 C 06/23/16 15:00 Pulse 95 H 06/23/16 15:00 Resp 16 06/23/16 15:00 BP 132/76 06/23/16 15:00 Pulse Ox 91 06/23/16 15:00 Oxygen Flow Rate 1 Oxygen Delivery Method Room Air - Respiratory Respiratory exam: Present: clear. Absent: rales, rhonchi, wheezes - Cardiovascular Cardiovascular exam: Present: RRR. Absent: systolic murmur - GI/Abdominal GI/Abdominal exam: Present: soft. Absent: tenderness - Extremities Exam Extremities exam: Absent: calf tenderness, edema - Lab Labs: Laboratory Last Values WBC 11.5 X 10^3uL (3.9-10.7) H 06/23/16 06:30 RBC 5.00 X 10^6uL (4.20-6.10) 06/23/16 06:30 Hgb 15.4 g/dL (14.0-18.0) 06/23/16 06:30 Hct 45.5 % (42.0-54.0) 06/23/16 06:30 MCV 90.9 fL (80.0-100.0) 06/23/16 06:30 MCH 30.8 pg (29.0-35.0) 06/23/16 06:30 MCHC 33.8 g/dL (32.0-36.0) 06/23/16 06:30 RDW 13.2 % (11.5-14.5) 06/23/16 06:30 Plt Count 156 X 10^3uL (130-440) 06/23/16 06:30 MPV 9.2 fL (7.4-10.4) 06/23/16 06:30 Neutrophils % 90.6 % (54.0-75.0) H 06/23/16 06:30 Lymphocytes % 4.8 % (20.0-40.0) L 06/23/16 06:30 Eosinophils % 0.0 % (0.0-6.0) 06/23/16 06:30 Basophils % 0.7 % (0.0-2.0) 06/23/16 06:30 Neutrophils # 10.4 X 10^3uL (2.6-6.7) H 06/23/16 06:30 Lymphocytes # 0.6 X 10^3uL (0.8-3.8) L 06/23/16 06:30 Monocytes 3.9 % (2.0-10.0) 06/23/16 06:30 Monocytes # 0.4 X 10^3uL (0.2-1.0) 06/23/16 06:30 Eosinophils # 0.0 X 10^3uL (0.0-0.4) 06/23/16 06:30 Basophils # 0.1 X 10^3uL (0.0-0.1) 06/23/16 06:30 D-Dimer 503 ng/mL H* 06/21/16 08:05 Sodium 133 mmol/L (137-145) L 06/23/16 06:30 Potassium 3.9 mmol/L (3.5-5.1) 06/23/16 06:30 Chloride 106 mmol/L (98-107) 06/23/16 06:30 Carbon Dioxide 19 mmol/L (22-30) L 06/23/16 06:30 BUN 28 mg/dL (9-20) H 06/23/16 06:30 Creatinine 0.8 mg/dL (0.7-1.3) 06/23/16 06:30 GFR Calculation > 60 mL/min 06/23/16 06:30 Glucose 305 mg/dL (70-100) H 06/23/16 06:30 Calcium 8.6 mg/dL (8.4-10.2) 06/23/16 06:30 Total Bilirubin 0.8 mg/dL (0.2-1.3) 06/22/16 06:20 AST 21 U/L (17-59) 06/22/16 06:20 ALT 34 U/L (21-72) 06/22/16 06:20 Alkaline Phosphatase 70 U/L (38-126) 06/22/16 06:20 Troponin I < 0.012 ng/mL (0.00-0.034) 06/22/16 06:20 Total Protein 6.7 g/dL (6.3-8.2) 06/22/16 06:20 Albumin 3.9 g/dL (3.5-5.0) 06/22/16 06:20 Albumin/Globulin Ratio 1.4 06/22/16 06:20 Influenza Types A,B Ag Inf a & b negative 06/21/16 09:20 Assessment and Plan - Date of Encounter Date of Encounter: 06/23/16 (1) Bronchitis Status: Acute Assessment and plan: Improving, hopefully can taper off O2 Currently sputum C&S pending Rocephin Continue solumedrol, updrafts, etc Possible D/C home tomorrow Current Visit: Yes (2) Hyperglycemia Status: Acute Assessment and plan: Will reduce solumedrol. SSI Current Visit: Yes (3) Hyponatremia Status: Acute Assessment and plan: Dehydration improving. Hyponatremia not clinically significant Current Visit: Yes (4) Bradycardia Status: Chronic Assessment and plan: Improved off metoprolol - may need low dose metoprolol on outpt basis to control PVCs and PACs Current Visit: Yes - Time Spent With Patient Total time spent with greater than 50% in coordination of care (as documented) at patient's floor/unit and/or counseling patient: Estimated anticipated discharge: 1-2 days
[2016-06-23] MEDS: clonazePAM 0.5 MG TABLET PO SCH (20:49)
[2016-06-23] MEDS: TERAZOSIN HCL 5 MG CAPSULE PO SCH (20:49)
[2016-06-24] MEDS: IPRATROPIUM/ALBUTEROL 0.5/3 MG 3 ML AMPUL.NEB INHALATION SCH ×3 (00:01→08:31)
[2016-06-24] MEDS: METHYLPREDNISOLONE SOD IV SCH (03:53)
[2016-06-24] MEDS: PANTOPRAZOLE 40 MG TABLET PO SCH (06:24)
[2016-06-24 06:27] VITALS: BP 144/74; PULSE 91; RESP 18; TEMP 98.6; O2SAT 92
[2016-06-24] MEDS: INSULIN LISPRO 100 UNIT/ML ML SUBCUT SCH (06:38)
--- NOTE | 2016-06-24 07:35 | RADIOLOGY REPORT ---
A limited single portable view of the chest is compared with prior films dated . There has been no change. The heart and vessels are stable and unremarkable. The lung grace are clear. No infiltrate, fluid or pneumothorax is seen. IMPRESSION: Stable, unremarkable limited single portable view of the chest. Please see CT scan report from the same date. MTDD
[2016-06-24] MEDS: HCTZ PO SCH (08:50)
[2016-06-24] MEDS: [UNRECOGNIZED DRUG - REMARK] PO SCH (08:50)
[2016-06-24] MEDS: TRIAMTERENE PO SCH (08:50)
[2016-06-24] MEDS: NORMAL SALINE MINI IV SCH (08:51)
[2016-06-24] MEDS: CEFTRIAXONE SODIUM IV SCH (08:51)
[2016-06-24] MEDS ORDERED: BISACODYL 5 MG TABLET PO SCH (09:00)
[2016-06-24] MEDS ORDERED: INHALER, ASSIST DEVICES 1 PKT EACH INHALATION SCH (09:00)
--- NOTE | 2016-06-24 09:58 | PROGRESS NOTE: IM SOAP ---
IM: PN Subjective Cardiovascular: no chest pain, no palpitations, no dizziness Respiratory: wheeze (improving), no cough, no sputum, no SOB Gastrointestinal: no abdominal pain, no nausea, no vomiting, no diarrhea IM: PN Objective Exam - I&O/Vital Signs I&O: Intake & Output 06/23/16 06/24/16 06/24/16 21:59 05:59 13:59 Weight 80.5 kg Other: Urine Appearance Clear Clear Urine Color Yellow Yellow Voiding Method Toilet Toilet Vital Signs: Last Vital Signs Temp 37.0 C 06/24/16 06:25 Pulse 91 H 06/24/16 06:25 Resp 18 06/24/16 09:00 BP 144/74 06/24/16 06:25 Pulse Ox 92 06/24/16 09:00 Oxygen Flow Rate 1 Oxygen Delivery Method Room Air - Respiratory Respiratory exam: Present: clear. Absent: rales, rhonchi, wheezes - Cardiovascular Cardiovascular exam: Present: RRR. Absent: systolic murmur - GI/Abdominal GI/Abdominal exam: Present: soft. Absent: tenderness - Extremities Exam Extremities exam: Absent: calf tenderness, edema - Lab Labs: Laboratory Last Values WBC 11.5 X 10^3uL (3.9-10.7) H 06/23/16 06:30 RBC 5.00 X 10^6uL (4.20-6.10) 06/23/16 06:30 Hgb 15.4 g/dL (14.0-18.0) 06/23/16 06:30 Hct 45.5 % (42.0-54.0) 06/23/16 06:30 MCV 90.9 fL (80.0-100.0) 06/23/16 06:30 MCH 30.8 pg (29.0-35.0) 06/23/16 06:30 MCHC 33.8 g/dL (32.0-36.0) 06/23/16 06:30 RDW 13.2 % (11.5-14.5) 06/23/16 06:30 Plt Count 156 X 10^3uL (130-440) 06/23/16 06:30 MPV 9.2 fL (7.4-10.4) 06/23/16 06:30 Neutrophils % 90.6 % (54.0-75.0) H 06/23/16 06:30 Lymphocytes % 4.8 % (20.0-40.0) L 06/23/16 06:30 Eosinophils % 0.0 % (0.0-6.0) 06/23/16 06:30 Basophils % 0.7 % (0.0-2.0) 06/23/16 06:30 Neutrophils # 10.4 X 10^3uL (2.6-6.7) H 06/23/16 06:30 Lymphocytes # 0.6 X 10^3uL (0.8-3.8) L 06/23/16 06:30 Monocytes 3.9 % (2.0-10.0) 06/23/16 06:30 Monocytes # 0.4 X 10^3uL (0.2-1.0) 06/23/16 06:30 Eosinophils # 0.0 X 10^3uL (0.0-0.4) 06/23/16 06:30 Basophils # 0.1 X 10^3uL (0.0-0.1) 06/23/16 06:30 D-Dimer 503 ng/mL H* 06/21/16 08:05 Sodium 133 mmol/L (137-145) L 06/23/16 06:30 Potassium 3.9 mmol/L (3.5-5.1) 06/23/16 06:30 Chloride 106 mmol/L (98-107) 06/23/16 06:30 Carbon Dioxide 19 mmol/L (22-30) L 06/23/16 06:30 BUN 28 mg/dL (9-20) H 06/23/16 06:30 Creatinine 0.8 mg/dL (0.7-1.3) 06/23/16 06:30 GFR Calculation > 60 mL/min 06/23/16 06:30 Glucose 305 mg/dL (70-100) H 06/23/16 06:30 Calcium 8.6 mg/dL (8.4-10.2) 06/23/16 06:30 Total Bilirubin 0.8 mg/dL (0.2-1.3) 06/22/16 06:20 AST 21 U/L (17-59) 06/22/16 06:20 ALT 34 U/L (21-72) 06/22/16 06:20 Alkaline Phosphatase 70 U/L (38-126) 06/22/16 06:20 Troponin I < 0.012 ng/mL (0.00-0.034) 06/22/16 06:20 Total Protein 6.7 g/dL (6.3-8.2) 06/22/16 06:20 Albumin 3.9 g/dL (3.5-5.0) 06/22/16 06:20 Albumin/Globulin Ratio 1.4 06/22/16 06:20 Influenza Types A,B Ag Inf a & b negative 06/21/16 09:20 Assessment and Plan - Date of Encounter Date of Encounter: 06/24/16 (1) Bronchitis Status: Acute Assessment and plan: Improving, off O2 Currently sputum grew out Serratia, most likely contaminant. I still suspect that pt has viral infection but will cover with Levaquin on D/C D/C home Current Visit: Yes (2) Hyperglycemia Status: Acute Assessment and plan: D/C on prednisone taper Will followup on possible DM on outpt basis Current Visit: Yes (3) Hyponatremia Status: Acute Current Visit: Yes (4) Bradycardia Status: Chronic Assessment and plan: Low dose metoprolol on outpt basis to control PVCs and PACs Current Visit: Yes - Time Spent With Patient Total time spent with greater than 50% in coordination of care (as documented) at patient's floor/unit and/or counseling patient: Estimated anticipated discharge: 1-2 days
[2016-06-24] MEDS ORDERED: INHALER, ASSIST DEVICES 1 PKT EACH ONE (10:17)
--- NOTE | 2016-06-24 13:21 | DISCHARGE SUMMARY ---
DATE OF DISCHARGE: 06/24/16 DIAGNOSES 1. Acute bronchitis. 2. Hypoxia. 3. Hyperglycemia secondary to steroids. 4. Hyponatremia. 5. Bradycardia secondary to metoprolol. PROCEDURES: Chest CT scan. HISTORY OF PRESENT ILLNESS: This is a 81-year-old male who was seen in the clinic on 06/02/16 and 06/17/16 for URI/bronchitis symptoms. The patient has had progressive decline and worsening of symptoms and apparently failed outpatient management. It was felt that the most likely etiology was viral but he was treated with azithromycin and steroids on an outpatient basis with no improvement. At the time of admission, the patient was wheezing, short of breath, fatigued. He has been using Spiriva and ProAir HFA inhalers. In addition he was having issues with PVCs and PACs for which he was prescribed metoprolol 50 mg p.o. q.day per Dr. Conley, but was found to be rather bradycardic with heart rate of 35 in the emergency room. This may be contributing to some of the fatigue and bronchospasm. Please see previously dictated history and physical per Dr. Monroe for further details. HOSPITAL COURSE: The patient was admitted with acute bronchitis. Chest x-ray and chest CT scan did not show obvious pneumonia, pulmonary embolism, etc. In addition, the patient was hypoxic. The patient was started on Rocephin, Solu- Medrol, DuoNeb updraft treatments, etc. By the time he was discharged, he was on room air oxygen and wheezing and shortness of breath and cough had improved. While symptoms are still present, he was felt to be sufficiently improved to allow him to return home. Sputum culture did grow out serratia, which is most likely a contaminant and I still suspect that he most likely had a viral etiology for his presentation. D-dimer was elevated but there was no evidence of pulmonary embolism on chest CT scan and was felt to be a false positive. The patient did develop hyperglycemia during his hospital stay felt to be related to steroids, for which he did receive insulin on an inpatient basis. He will be off insulin on the outpatient basis and we will be monitoring his blood sugars to see if they come down or whether further treatment is warranted. During his inpatient stay, he was monitored on Telemetry and was found to have heart rate in the 80/95 range off of metoprolol. It was elected to reduce his dose of metoprolol from 50 mg down to 25 mg p.o. q.day on an outpatient basis to control PVCs and PACs, and we will have him followup with Cardiology in the next month to readdress this. However, it was felt that the high dose metoprolol 50 mg resulted in profound bradycardia. Also he had some mild hyponatremia which was not felt to be clinically significant. At that time he was felt to be sufficiently stable to return to the home environment. DISCHARGE INSTRUCTIONS: The patient may participate in activities as able. He is on a low salt, low cholesterol diet. No home oxygen was needed. DISCHARGE MEDICATIONS Levaquin 750 mg p.o. q.day times 5 days prophylactic which would cover bronchitis, pneumonia and the serratia. Prednisone 20 mg p.o. taper, 3 tablets q.day for 3 days, 2 tablets q.day for 3 days, 1 tablet q.day for 3 days. Fluticasone nasal inhaler 2 sprays to each nostril q.day p.r.n. Indomethacin 50 mg p.o. t.i.d. p.r.n. Clonazepam 0.5 mg p.o. q.h.s. Gemfibrozil 600 mg p.o. b.i.d. Maxzide 37.5/25 mg one tablet p.o. q.day. Lovastatin 10 mg p.o. at bedtime. Omeprazole 20 mg p.o. q.day. Cholchicine/Probenecid 1 tablet p.o. q.day. Terazosin 5 mg p.o. q.h.s. Sildenafil 100 mg p.o. p.r.n. Metoprolol tartrate ER has been reduced to 50 mg one-half tablet p.o. q.day. ProAir HFA inhaler 2 puffs q.i.d. with a chamber, and hopefully will reduce to p.r.n. in the future one again. Spiriva 2 puffs q.day. Copy to Dr. Conley. DORIS
== END 2016-06-24 09:59 | disposition home or self-care (01) | DRG 202 ==
LOC: ER 08:19 → IN 11:44 → OBSVTOIN 06-23 09:22
PROVIDERS: ADMIT Family Medicine; ATTEND Family Medicine
DX: J20.9 Acute bronchitis, unspecified (principal); R73.9 Hyperglycemia, unspecified; T38.0X5A Adverse effect of glucocorticoids and synthetic analogues, initial encounter; E87.1 Hypo-osmolality and hyponatremia; E78.5 Hyperlipidemia, unspecified; T44.7X5A Adverse effect of beta-adrenoreceptor antagonists, initial encounter; R00.1 Bradycardia, unspecified; M10.9 Gout, unspecified; M15.9 Polyosteoarthritis, unspecified; I10 Essential (primary) hypertension; G47.33 Obstructive sleep apnea (adult) (pediatric); G25.81 Restless legs syndrome; K21.9 Gastro-esophageal reflux disease without esophagitis; Z79.899 Other long term (current) drug therapy
CPT/HCPCS: 36415; 71010; 71275; 80048; 80053; 83036; 84484; 85025; 85379; 87040; 87070; 87077; 87186; 87205; 87449; 93005; 93010; 94640; 94664; 96361; 96374; 99220; 99285; E0555; G0378; J1650; J1815; J2930; J7030; J7613; J7620

== ENCOUNTER 2016-07-05 16:37 | Inpatient (IN) | payer MEDICARE, OTHER ==
[2016-07-05 17:18] LABS: BASOPHILS 0.6 % (0.0-2.0); EOSINOPHILS 1.6 % (0.0-6.0); EOSINOPHILS# 0.1 X 10^3uL (0.0-0.4); HEMOGLOBIN 17.4 g/dL (14.0-18.0); LYMPHOCYTES 12.8 % (20.0-40.0); LYMPHOCYTES# 0.9 X 10^3uL (0.8-3.8); MEAN CELL VOLUME 91.5 fL (80.0-100.0); MEAN CORPUS. HGB CONCENTRATION 33.5 g/dL (32.0-36.0); MEAN CORPUSCULAR HEMOGLOBIN 30.7 pg (29.0-35.0); MEAN PLATELET VOLUME 10.4 fL (7.4-10.4); MONOCYTES 8.9 % (2.0-10.0); MONOCYTES# 0.6 X 10^3uL (0.2-1.0); NEUTROPHILS 76.1 % (54.0-75.0); NEUTROPHILS# 5.2 X 10^3uL (2.6-6.7); RED BLOOD COUNT 5.68 X 10^6uL (4.20-6.10); RED CELL DISTRIBUTION WIDTH 12.6 % (11.5-14.5); WHITE BLOOD COUNT 6.8 X 10^3uL (3.9-10.7)
[2016-07-05] MEDS ORDERED: INSULIN REGULAR HUMAN 100 UNITS/ML ML ONE ×2 (17:22→19:55)
[2016-07-05 17:26] LABS: BETA HYDROXYBUTYRATE 1.07 mmol/L (<0.40)
[2016-07-05 17:28] LABS: CALCIUM 9.1 mg/dL (8.4-10.2); CREATININE 1.4 mg/dL (0.7-1.3); POTASSIUM 3.7 mmol/L (3.5-5.1)
[2016-07-05] MEDS ORDERED: POTASSIUM CHLORIDE/D5 0.45%NAC 1,000 ML IV PRN (18:14)
[2016-07-05] MEDS ORDERED: INSULIN REGULAR HUMAN IV PRN (18:14)
[2016-07-05] MEDS ORDERED: POTASSIUM CHLORIDE/0.45% NACL 1,000 ML IV PRN (18:14)
[2016-07-05] MEDS ORDERED: SODIUM CHLORIDE 0.45 % 1,000 ML IV PRN (18:14)
[2016-07-05] MEDS ORDERED: DEXTROSE 5% IV PRN (18:14)
[2016-07-05] MEDS ORDERED: NORMAL SALINE 1,000 ML IV ONE (18:14)
[2016-07-05] MEDS ORDERED: NORMAL SALINE 1,000 ML IV PRN (18:14)
[2016-07-05] MEDS ORDERED: NORMAL SALINE IV PRN (18:14)
[2016-07-05] MEDS ORDERED: DEXTROSE 5% 0.5 NS 1,000 ML IV PRN (18:14)
[2016-07-05] MEDS ORDERED: MAGNESIUM SULFATE IV PRN (18:14)
[2016-07-05] MEDS ORDERED: POTASSIUM CHLORIDE/NS 1,000 ML IV PRN (18:14)
[2016-07-05] MEDS ORDERED: FLUTICASONE NASAL 120 SPRAY BTL NASAL PRN ×2 (18:44→22:35)
[2016-07-05] MEDS ORDERED: ALBUTEROL HFA 1 INH INHALER INHALATION PRN (18:44)
[2016-07-05 18:47] LABS: ARTERIAL BLOOD GAS PCO2 25.8 mmHg (35-45)
[2016-07-05 19:03] LABS: MAGNESIUM 1.9 mg/dL (1.6-2.3)
[2016-07-05] MEDS ORDERED: NORMAL SALINE 100 ML IV ONE (19:54)
[2016-07-05 20:14] LABS: VENOUS PH 7.37 (7.31-7.41)
[2016-07-05 20:31] LABS: CALCIUM 8.5 mg/dL (8.4-10.2); CREATININE 1.2 mg/dL (0.7-1.3); POTASSIUM 3.8 mmol/L (3.5-5.1)
--- NOTE | 2016-07-05 22:25 | ER PHYSICIAN DOCUMENTATION ---
Physician Documentation [facility] Name:Joaquin Mckeon IV Age:81 yrs Sex:Male :1935 Arrival Date:07/05/2016 Time:16:37 Bed1 Private MD:John Medrano ED, [place] Disposition: 07/05/16 17:51 Admit ordered for John Medrano. Preliminary diagnosis is Diabetic Ketoacidosis (uncontrolled).. - Bed requested for Medical/Surgical. - Condition is Serious. - Problem is new. - Symptoms have improved. 23 HR OBS Yes HPI: 07/05 17:32 This 81 yrs old Male presents to ER via Private Vehicle with complaints of sc Abnormal Lab Results. 17:32 The patient or guardian reports hyperglycemia, that was potentially precipitated by sc pneumonia and steroids. Onset: The symptom(s)/episode began/occurred 3 week(s) ago, and became worse yesterday. Associated signs and symptoms: Pertinent positives: anorexia, polydipsia, polyuria. The EMS care prior to arrival includes: none. Current symptoms: In the emergency department the patient's symptoms are unchanged from the initial presentation. Historical: - Allergies: Allopurinol; Lisinopril; - Home Meds: 1. losartan oral 2. testosterone buccal 3. Indomethacin Oral 4. tiotropium 5. sildenafil oral 6. Flonase Nasal 7. ProAir HFA inhalation 8. Gemfibrozil Oral 9. Colchicine Oral 10. Clonazepam Oral 11. Prilosec Oral 12. terazosin oral 13. Maxzide Oral 14. Metoprolol Tartrate Oral - PMHx: GOUT; CAD; HYPERTENSION; - PSHx: BOWEL RESECTION; APPENDECTOMY; Ortho repairs, multiple; - Tetanus: < 10 years. - Ebola Screening: : Patient negative for fever greater than or equal to 101.5 degrees Fahrenheit, and additional compatible Ebola Virus Disease symptoms. Patient denies exposure to infectious person. Patient denies travel to an Ebola-affected area in the 21 days before illness onset. No symptoms or risks identified at this time. . - Immunization history: Pneumococcal vaccine is up to date, Flu Vaccine < 1 year. - Social history: Smoking status: Patient states former smoker of tobacco. ROS: 17:33 Eyes: Negative for injury, pain, redness, and discharge. sc ENT: Negative for injury, pain, and discharge. Neck: Negative for injury, pain, and swelling. Cardiovascular: Negative for chest pain, palpitations, and edema. Respiratory: Negative for shortness of breath, cough, wheezing, and pleuritic chest pain. Abdomen/GI: Negative for abdominal pain, nausea, vomiting, diarrhea, and constipation. Back: Negative for injury and pain. MS/Extremity: Negative for injury and deformity. Skin: Negative for injury, rash, and discoloration. 17:33 Neuro: Negative for headache, weakness, numbness, tingling, and seizure. sc 17:33 Constitutional: Positive for fatigue. 17:33 : Positive for urinary frequency. Exam: Constitutional: This is a well developed, well nourished patient who is awake, alert, and in no acute distress. Head/Face: Normocephalic, atraumatic. Eyes: Pupils equal round and reactive to light, extra-ocular motions intact. Lids and lashes normal. Conjunctiva and sclera are non-icteric and not injected. Cornea within normal limits. Periorbital areas with no swelling, redness, or edema. Neck: Trachea midline, no thyromegaly or masses palpated, and no cervical lymphadenopathy. Supple, full range of motion without nuchal rigidity, or vertebral point tenderness. No meningismus. Chest/axilla: Normal chest wall appearance and motion. Nontender with no deformity. No lesions are appreciated. Cardiovascular: Regular rate and rhythm with a normal S1 and S2. No gallops, murmurs, or rubs. Normal PMI, no JVD. No pulse deficits. Respiratory: Lungs have equal breath sounds bilaterally, clear to auscultation and percussion. No rales, rhonchi or wheezes noted. No increased work of breathing, no retractions or nasal flaring. Abdomen/GI: Soft, non-tender, with normal bowel sounds. No distension or tympany. No guarding or rebound. No evidence of tenderness throughout. Back: No spinal tenderness. No costovertebral tenderness. Full range of motion. MS/ Extremity: Pulses equal, no cyanosis. Neurovascular intact. Full, normal range of motion, negative Homans's, calves equal bilaterally. 17:34 Neuro: Awake and alert, GCS 15, oriented to person, place, time, and situation. nd Cranial nerves II-XII grossly intact. Motor strength 5/5 in all extremities. Sensory grossly intact. Cerebellar exam normal. Normal gait. 17:34 ENT: Mouth: Oral mucosa: dry. 17:34 Skin: Turgor: is poor, tenting is noted. Vital Signs: 17:27 Pulse 66 MON; Resp 15; Pulse Ox 93% ; tg 17:30 BP 132 / 66 (auto/); tg 21:00 BP 127 / 82; Pulse 62; Resp 21; Pulse Ox 96% on R/A; Pain 0/10; mk4 MDM: 17:15 Patient medically screened. nd 17:34 Differential diagnosis: DKA, hyperglycemia, new onset diabetes. Data reviewed: vital sc signs, nurses notes, old medical records, lab test result(s), and as a result, I will admit patient. Counseling: I had a detailed discussion with the patient and/or guardian regarding: the historical points, exam findings, and any diagnostic results supporting the discharge/admit diagnosis, lab results, the need for further work-up and treatment in the hospital. Physician consultation: John Medrano MD was called at 17:35, regarding admission, patient's condition. 17:46 Physician consultation: was contacted at 17:46. Admission orders: after a detailed nd discussion of the patient's condition and case, the admit orders are written by me. 07/05 17:19 Order name: CBC AUTO DIF, MDIF/RMOR IF IND [facility] 07/05 17:31 Interpretation: Normal: Normal. nd 07/05 17:26 Order name: BETA HYDROXYBUTYRATE [facility] 07/05 17:30 Interpretation: Abnormal: BETA HYDROXYBUTYRATE 1.07. nd 07/05 17:36 Order name: BASIC METABOLIC PANEL [facility] 07/05 17:40 Interpretation: Abnormal: SODIUM 122; GLUCOSE 734; BLOOD UREA NITROGEN 47; CREATININE nd 1.4. 07/05 18:48 Order name: ARTERIAL BLOOD GAS [facility] 07/05 19:06 Order name: OSMOLALITY, SERUM [facility] 07/05 19:23 Order name: MAGNESIUM [facility] 07/05 19:38 Order name: PHOSPHORUS [facility] 07/05 20:15 Order name: VENOUS PH [facility] 07/05 20:37 Order name: BASIC METABOLIC PANEL [facility] 07/05 18:30 Order name: Dinner Tray: diabetic tray; Complete Time: 18:35 tg 07/05 16:55 Order name: FSBS; Complete Time: 17:18 tg 07/05 17:15 Order name: Urine Dip sc 07/05 17:50 Order name: FSBS; Complete Time: 17:50 tg 07/05 18:30 Order name: FSBS; Complete Time: 18:35 tg 07/05 18:56 Order name: 12-lead EKG; Complete Time: 18:56 tg Dispensed Medications: 17:14 Drug: NS 0.9% 1000 ml; Route: IV; Rate: bolus; Site: left forearm; mk2 17:48 Follow up: IV Status: Completed infusion; IV Intake: 1000ml tg 17:18 Drug: Insulin Regular Human 5 units; Route: IVP; Infused Over: 1 mins; Site: left tg antecubital; 17:48 Follow up: Response: No adverse reaction tg 18:36 Drug: NS 0.9% 1000 ml; Route: IV; Rate: 250 ml/hr; Site: left antecubital; tg 07/06 22:00 Follow up: IV Status: Completed infusion; IV Intake: 1000ml mk4 Point of Care Testing: Blood Glucose: 07/05 16:55 Blood Glucose: High >400; tg 17:27 Blood Glucose: 577 mg/dL; tg 18:27 Blood Glucose: 565 mg/dL; tg Ranges: Critical Glucose Levels:Adult <50 mg/dl or >400 mg/dl <40 mg/dl or >180 mg/dl Signatures: Patrice Franz RN RN Nawaf Palm MD MD sc Kruger, Meg, RN RN 2 Ellen Coy [facility]
--- NOTE | 2016-07-05 22:25 | ER NURSING DOCUMENTATION ---
Nurse's Notes [facility] Name:Joaquin Mckeon IV Age:81 yrs Sex:Male :1935 Arrival Date:07/05/2016 Time:16:37 Bed1 Private MD:John Medrano Diagnosis:Diabetic Ketoacidosis (uncontrolled). Presentation: 07/05 16:39 Acuity: RACHEAL 2 tg 16:55 Notified ED Physician of patient's arrival and CC Dr. Palm notified. tg 16:55 Presenting complaint: Patient states: Hospitalized for pneumonia 3 weeks ago, blood tg sugar was elevated (500-800) perhaps due to steroids. No hx of diabetes, d/c with no insulin. At [facility] today, blood sugar was >500, pt advised to check into ED. Pt reports feeling groggy the past few days, difficulty urinating. Transition of care: patient was not received from another setting of care. 16:55 Method Of Arrival: Private Vehicle tg Triage Assessment: 17:03 General: Appears in no apparent distress, comfortable, Behavior is cooperative, tg pleasant. Pain: Denies pain. Neuro: Level of Consciousness is awake, alert. Cardiovascular: Capillary refill < 3 seconds. Respiratory: Respiratory effort is even, unlabored. GI: Denies nausea. : Reports retention. Derm: Skin is pink, warm & dry. Historical: - Allergies: Allopurinol; Lisinopril; - Home Meds: 1. losartan oral 2. testosterone buccal 3. Indomethacin Oral 4. tiotropium 5. sildenafil oral 6. Flonase Nasal 7. ProAir HFA inhalation 8. Gemfibrozil Oral 9. Colchicine Oral 10. Clonazepam Oral 11. Prilosec Oral 12. terazosin oral 13. Maxzide Oral 14. Metoprolol Tartrate Oral - PMHx: GOUT; CAD; HYPERTENSION; - PSHx: BOWEL RESECTION; APPENDECTOMY; Ortho repairs, multiple; - Tetanus: < 10 years. - Ebola Screening: : Patient negative for fever greater than or equal to 101.5 degrees Fahrenheit, and additional compatible Ebola Virus Disease symptoms. Patient denies exposure to infectious person. Patient denies travel to an Ebola-affected area in the 21 days before illness onset. No symptoms or risks identified at this time. . - Immunization history: Pneumococcal vaccine is up to date, Flu Vaccine < 1 year. - Social history: Smoking status: Patient states former smoker of tobacco. Screenin:03 Infectious Disease Risk Unable to Obtain. Abuse screen: Denies threats or abuse. Denies tg injuries from another. Nutritional screening: No deficits noted. Assessment: 17:04 See Triage Assessment done by same RN. tg Vital Signs: 17:27 Pulse 66 MON; Resp 15; Pulse Ox 93% ; tg 17:30 BP 132 / 66 (auto/); tg 21:00 BP 127 / 82; Pulse 62; Resp 21; Pulse Ox 96% on R/A; Pain 0/10; mk4 ED Course: 16:38 Patient arrived in ED. lm3 16:38 John Medrano MD is Private Physician. lm3 16:39 Triage completed. tg 16:42 Patrice Franz RN is Primary Nurse. tg 17:04 Arm band placed on Bed in low position Call Light in Reach Gowned HOB Elevated Side tg rails up x1. Family accompanied patient. 17:14 Inserted peripheral IV: 20 gauge in left forearm and blood collected. mk2 17:15 Nawaf Palm MD is Attending Physician. sc 17:29 Valuables Remains with patient. batch operator on. Pulse ox on. NIBP on. Verbal mk2 reassurance given. Warm blanket given. 17:[address] Palm notified. Notified BG over 625 reported from Sushant in Lab. mk2 Reported to [address] Palm. 17:35 Sushant reports a final BS value of 734. mk2 17:47 John Medrano MD is Admitting Physician. sc 18:54 Report given to SALLY Thornton. Diet: Patient given diabetic meal. tg 19:30 Inserted peripheral IV: 18 gauge in right antecubital area 2nd line. Started by Baudilio soto RN. Administered Medications: 17:14 Drug: NS 0.9% 1000 ml; Route: IV; Rate: bolus; Site: left forearm; mk2 17:48 Follow up: IV Status: Completed infusion; IV Intake: 1000ml tg 17:18 Drug: Insulin Regular Human 5 units; Route: IVP; Infused Over: 1 mins; Site: left tg antecubital; 17:48 Follow up: Response: No adverse reaction tg 18:36 Drug: NS 0.9% 1000 ml; Route: IV; Rate: 250 ml/hr; Site: left antecubital; tg 07/06 22:00 Follow up: IV Status: Completed infusion; IV Intake: 1000ml mk4 Point of Care Testing: Blood Glucose: 07/05 16:55 Blood Glucose: High >400; tg 17:27 Blood Glucose: 577 mg/dL; tg 18:27 Blood Glucose: 565 mg/dL; tg Ranges: Intake: 17:48 IV: 1000ml; Total: 1000ml. tg 07/06 22:00 IV: 1000ml; Total: 2000ml. mk4 Outcome: 07/05 17:51 Decision to Admit by Provider. tn 21:00 Admitted to Med/surg Other Will hold as floor admit in ED. Admit orders and insulin mk4 protocol per Dr. Reis initiated. Charting converted to [employer] by baudilio ZAVALA 21:00 Condition: stable mk4 21:00 Report given to Baudilio ZAVALA 22:23 Patient left the ED. mk4 Signatures: Patrice Franz RN RN Nawaf Palm MD MD tn Lamar Bianchi RN RN mk2 Ellen Coy mk4 Thuy Macario 3
[2016-07-05] MEDS: clonazePAM 0.5 MG TABLET PO SCH (22:53)
[2016-07-05] MEDS: TERAZOSIN HCL 5 MG CAPSULE PO SCH (22:53)
[2016-07-05] MEDS: LOVASTATIN 20 MG TABLET PO SCH (22:54)
[2016-07-05 23:12] LABS: CALCIUM 8.3 mg/dL (8.4-10.2); CREATININE 1.2 mg/dL (0.7-1.3); POTASSIUM 2.9 mmol/L (3.5-5.1)
[2016-07-05 23:23] LABS: URINE APPEARANCE CLEAR; URINE COLOR YELLOW; URINE LEUKOCYTE ESTERASE NEGATIVE (NEGATIVE); URINE MUCUS NONE SEEN (Up to 25%); URINE NITRITE NEGATIVE (NEGATIVE); URINE RBC NONE SEEN (0-5/hpf); URINE SQUAMOUS EPITHELIAL CELL NONE SEEN (<= 15/hpf)
[2016-07-05 23:24] LABS: URINE BACTERIA NONE SEEN (<10/hpf); URINE BILIRUBIN NEGATIVE (NEGATIVE); URINE BLOOD NEGATIVE (NEGATIVE); URINE GLUCOSE 500mg/dL (2+) (NEGATIVE); URINE KETONE 5mg/dL (NEGATIVE); URINE PROTEIN NEGATIVE (NEG - TRACE); URINE UROBILINOGEN 0.2mg/dL (Normal) (NEG-1mg/dL); URINE WBC 0-4/hpf (0-4/hpf)
[2016-07-06] MEDS ORDERED: POTASSIUM CHLORIDE ER 20 MEQ TABLET PO ONE ×3 (00:04→21:00)
[2016-07-06 01:36] LABS: BLOOD UREA NITROGEN 42 mg/dL (9-20); CHLORIDE 104 mmol/L (98-107); CREATININE 1.1 mg/dL (0.7-1.3); EST GLOMERULAR FILTRATION RATE > 60 mL/min; SODIUM 130 mmol/L (137-145)
[2016-07-06 01:41] LABS: GLUCOSE 207 mg/dL (70-100)
[2016-07-06 01:44] LABS: VENOUS PH 7.39 (7.31-7.41)
[2016-07-06] MEDS ORDERED: DEXTROSE 5% 0.5 NS 1,000 ML IV ONE ×2 (01:56→08:34)
[2016-07-06 03:20] LABS: CREATININE 1.1 mg/dL (0.7-1.3); POTASSIUM 3.2 mmol/L (3.5-5.1)
[2016-07-06 05:42] LABS: A/G RATIO 1.2; ALBUMIN 2.9 g/dL (3.5-5.0); ALKALINE PHOSPHATASE 60 U/L (38-126); ALT 40 U/L (21-72); AST 21 U/L (17-59); BILIRUBIN, TOTAL 0.8 mg/dL (0.2-1.3); BLOOD UREA NITROGEN 38 mg/dL (9-20); CHLORIDE 104 mmol/L (98-107); EST GLOMERULAR FILTRATION RATE > 60 mL/min; GLUCOSE 170 mg/dL (70-100); MAGNESIUM 1.7 mg/dL (1.6-2.3); PHOSPHORUS 3.5 mg/dL (2.5-4.5); POTASSIUM 3.2 mmol/L (3.5-5.1); SODIUM 131 mmol/L (137-145); TOTAL PROTEIN 5.4 g/dL (6.3-8.2)
[2016-07-06 05:59] LABS: BASOPHILS 0.7 % (0.0-2.0); EOSINOPHILS 4.8 % (0.0-6.0); EOSINOPHILS# 0.3 X 10^3uL (0.0-0.4); HEMATOCRIT 44.2 % (42.0-54.0); HEMOGLOBIN 14.8 g/dL (14.0-18.0); LYMPHOCYTES 22.9 % (20.0-40.0); LYMPHOCYTES# 1.2 X 10^3uL (0.8-3.8); MEAN CELL VOLUME 89.7 fL (80.0-100.0); MEAN CORPUS. HGB CONCENTRATION 33.5 g/dL (32.0-36.0); MEAN PLATELET VOLUME 9.5 fL (7.4-10.4); MONOCYTES 11.5 % (2.0-10.0); MONOCYTES# 0.6 X 10^3uL (0.2-1.0); NEUTROPHILS 60.1 % (54.0-75.0); NEUTROPHILS# 3.3 X 10^3uL (2.6-6.7); PLATELET COUNT 100 X 10^3uL (130-440); RED BLOOD COUNT 4.92 X 10^6uL (4.20-6.10); RED CELL DISTRIBUTION WIDTH 12.6 % (11.5-14.5); WHITE BLOOD COUNT 5.4 X 10^3uL (3.9-10.7)
[2016-07-06] MEDS: PANTOPRAZOLE 40 MG TABLET PO SCH (06:07)
[2016-07-06 06:27] LABS: BETA HYDROXYBUTYRATE 0.12 mmol/L (<0.40)
[2016-07-06 06:37] LABS: GLYCOSYLATED HGB 10.5 %
[2016-07-06 08:36] LABS: CALCIUM 8.2 mg/dL (8.4-10.2)
--- NOTE | 2016-07-06 11:16 | HISTORY & PHYSICAL ---
DATE OF ADMISSION: 07/06/16 CHIEF COMPLAINT: Hyperglycemia. HISTORY OF PRESENT ILLNESS: The [place] [facility] today, at which time blood sugar was over 500. The patient was referred to the emergency room and was noted to have a serum glucose of 734. The patient was recently hospitalized 06/21/16 with acute bronchitis with associated hypoxia, and was noted to have significant hyperglycemia at that time. The patient was given IV insulin during the hospital stay. Apparently it was felt that the hyperglycemia at that time was most likely related to the respiratory infection and IV steroids. The plan had been to follow the patient on an outpatient basis and consider initiation of treatment for diabetes at a later date, if so warranted, once the patient was off steroids. The patient completed the prednisone taper as of yesterday. In addition, the patient had some issues with bradycardia related to metoprolol and the dose of metoprolol was reduced from 50 mg down to 25 mg daily during that hospital stay. The patient reports that as of late he has been feeling poorly, weak, tired, lack of energy. He has nocturia times 4-5, polyuria, polydipsia, polyphagia and lost about 16 pounds of weight since discharge. No visual problems. The patient is trying to exercise more, eat healthier and has gone back to a low calorie diet in order to treat the hyperglycemia. No fevers, chills, coryza, cough, shortness of breath or other symptoms suggestive of pneumonia or respiratory symptoms. He did have a bit of a throat irritation but no actual sore throat. No chest pain, chest pressure, chest tightness or other angina symptoms. No nausea, vomiting, diarrhea, constipation, melena or dysuria. No other obvious source for infection. ALLERGIES: Lidoderm patch, lisinopril (angioedema), allopurinol. MEDICATIONS Lovastatin 10 mg p.o. q.h.s. Gemfibrozil 600 mg p.o. b.i.d. Testosterone 2 mg IM 2 times per month. Indomethacin 50 mg p.o. t.i.d. p.r.n. gout. Colchicine/probenecid 0.5/500 mg 1 tablet p.o. q.day. Sildenafil 100 mg p.o. q.day p.r.n. Flonase nasal inhaler 2 sprays each nostril q.day. Clonazepam 0.5 mg p.o. q.h.s. p.r.n. leg spasm. Metoprolol tartrate 50 mg one-half tablet p.o. q.day. Prilosec 20 mg p.o. q.day. Turmeric 500 mg p.o. q.day. Terazosin 5 mg p.o. q.h.s. Maxzide 37.5/25 mg 1 tablet p.o. q.a.m. ProAir HFA inhaler 2 puffs q.i.d. p.r.n. Spiriva 18 mcg capsule inhaler q.day. PAST MEDICAL HISTORY 1. Subclinical hypothyroidism. 2. Obstructive sleep apnea, positional and followed by can dryer Dr. Carson. 3. Restless leg syndrome. 4. PVC and PACs followed by Dr. Conley. 5. Left knee osteoarthritis. 6. Hypotestosteronism. 7. Hyperlipidemia with associated profound hypertriglyceridemia with triglycerides greater than 1000. 8. Hypertension. 9. Gout. 10. Erectile dysfunction. 11. Hearing aids. 12. Physiologic hematuria in 1969 with negative neurologic workup. 13. Colon polpys. 14. GERD. 15. 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 16. Recent hyperglycemia, which appears to be consistent with new onset diabetes mellitus. 17. 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 Sullivan, Dr. Ruiz and Dr. Hernandez. 18. Left hemicolectomy in 2009 for diverticulitis. 19. Right foot surgery in 2005. 20. Right middle finger surgery in 2005. 21. Appendectomy, ruptured in 1994. 22. Right knee surgery in 1957. SOCIAL HISTORY: , 6 children. Retired real estate. Normally drinks 2 glasses of wine per night but has not drank anything since recent hospitalization. Quit smoking in 1989 after a 30-pack year smoking history. FAMILY HISTORY: Father at 96 of hypertension. Mother at 87 of old age and had macular degeneration. Sister with cancer and lymphoma. REVIEW OF SYSTEMS: No chest pain, chest pressure, tightness, CAD or other cardiac symptoms. No asthma or emphysema. Had recent clinical bronchitis, without the presence of pneumonia. No kidney, liver, seizures, PUD, new skin allergy or bleeding disorders. Hematuria times 4/5. PERVENTIVE HEALTH: Pneumovax in 2010. Prevnar in 2013. TD 2010. Zostavax 2011. Flu shoe 12/20/15. PHYSICAL EXAMINATION VITAL SIGNS: Please see vital signs in ER records, which are not available to me at this time. GENERAL: Well-developed, well-nourished overweight male, no acute distress, alert and oriented times 3. The patient appears tired. HEENT: EOMI. Pupils equally round reactive to light. Normal conjunctivae. Hearing aids in place. No coryza. Nasopharynx and oropharynx not injected. Sinuses nontender. NECK: No adenopathy, thyromegaly or bruits. Supple. CHEST: Clear. No rales, rhonchi or wheezes. Good breath sounds and symmetry throughout. COR: RRR without murmurs, gallops, rubs or clicks. No jugular venous distention. ABDOMEN: Soft, nontender. No hepatosplenomegaly. No masses. Bowel sounds present. LOWER EXTREMITIES: No edema, pulses present. No calf tenderness. Negative Homans sign. NEUROLOGIC: Cranial nerves 2 through 12 are intact. Motor 5/5. 1+ patellar reflexes. LABORATORY STUDIES: WBC 6.8, H&H 17.4/52.0, platelets 115,000. Sodium 122, potassium 3.7, chloride 89, CO2 21, BUN 47, creatinine 1.4, glucose 734. Calcium 9.1, magnesium and phosphorus pending. Beta hydroxybutyrate/ acetoacetate 1.07. Calculated serum osmolality 309. Measured serum osmolality 318. Arterial blood gas pending. Urinalysis pending. ASSESSMENT 1. Suspect early hyperosmolar hyperglycemic state in an elderly patient with new onset type 2 diabetes mellitus. Criteria for hyperosmolar hyperglycemic crisis include plasma glucose greater than 600, arterial pH of greater than 7.30 , serum bicarbonate greater than 18, presence of urine and serum ketones, serum osmolality greater than 320, profound dehydration and potential for altered mental status. The patient meets most of these criteria or has borderline criteria. I suspect that the HHS is still early. We should be able to manage this in [place] with close monitoring. This is considered a metabolic emergency of diabetes requiring extremely high level of care both from physician and nursing perspective. 2. New onset type 2 diabetes mellitus The patient has profound hyperglycemia. There was a question whether pneumonia and/or usage of steroids may have led to the hyperglycemia or whether the patient has true diabetes. Plan had been to follow this as on an outpatient basis conservatively, but the situation has now changed and we will take a much more aggressive approach towards treating diabetes and bringing blood sugars down. Will initiate treatment with insulin but there is a hope that we may be able to use metformin and/or Invokana at a later date. 3. Profound hyponatremia with sodium 122 secondary to number one. 4. Profound dehydration, which could be as much as 8-10 liters. 5. Hypertension. 6. Hyperlipidemia and hypertriglyceridemia. 7. PVCs and PACs. 8. Subclinical hypothyroidism. 9. Obstructive sleep apnea, positional with restless leg syndrome. PLAN: Will [place] [facility] [place] hyperosmolar hyperglycemic state (which is similar to the DKA protocol). Will need to be conscientious about the need for a large amount of IV fluids, and the patient may have as much as an 8-10 liter deficit. I had an extensive discussion with nursing and their ramp supervisor with management of this patient and will follow this patient closely. If the patient s status begins to deteriorate or the patient has illness of altered mental status, will need to transfer to an ICU setting. I have ordered most of the patients usual medications but will hold off on his diuretic and gemfibrazol. I do not believe the patient needs any further inhalers and the patient has completed his prednisone taper following his recent hospitalization. Discussed with the patient and his the nature of diabetes and that the patient will benefit from a diabetic nurse educator at a later date. Briefly discussed what diabetes is and how to treat and manage this. The patient is aware that we will try to have him on p.o. medications for his diabetes but there is a good possibility he may require insulin as well. Copy to Dr. Conley, Dr. Carson, can dryer [facility]
[2016-07-06 13:02] LABS: CALCIUM 8.1 mg/dL (8.4-10.2); POTASSIUM 3.5 mmol/L (3.5-5.1)
[2016-07-06] MEDS ORDERED: DEXTROSE 50% WATER 25 GM/50 ML SYR IV PRN (13:24)
[2016-07-06] MEDS: [UNRECOGNIZED DRUG - REMARK] PO SCH (13:30)
[2016-07-06] MEDS: NORMAL SALINE 1,000 ML IV SCH ×2 (14:13→21:48)
--- NOTE | 2016-07-06 14:21 | PROGRESS NOTE: IM SOAP ---
IM: PN Subjective Interval history: Over all feeling much better. Off IV insulin and will be starting SQ insulin sliding scale. Pt well hydrated, and will switch to NS now that pt's blood sugars are down and he is off IV insulin. Vitals good Labs improving, in particular prerenal azotemia, hyponatremia and hypokalemia. Will continue to hydrate with IV NS. Tolerating clr liq diet, adv as tolerated. IM: PN Objective Exam - I&O/Vital Signs I&O: Intake & Output 07/06/16 07/06/16 07/06/16 05:59 13:59 21:59 Weight 72.938 kg Vital Signs: Last Vital Signs Temp 36.7 C 07/06/16 00:14 Pulse 60 07/06/16 00:14 Resp 16 07/06/16 00:14 BP 123/62 07/06/16 00:14 Pulse Ox 95 07/06/16 00:14 Oxygen Delivery Method Room Air - Respiratory Respiratory exam: Present: clear. Absent: rales - Cardiovascular Cardiovascular exam: Present: RRR. Absent: systolic murmur - GI/Abdominal GI/Abdominal exam: Present: normal bowel sounds, soft. Absent: organomegaly, tenderness - Extremities Exam Extremities exam: Absent: calf tenderness, edema - Lab Labs: Laboratory Last Values WBC 5.4 X 10^3uL (3.9-10.7) 07/06/16 05:10 RBC 4.92 X 10^6uL (4.20-6.10) 07/06/16 05:10 Hgb 14.8 g/dL (14.0-18.0) 07/06/16 05:10 Hct 44.2 % (42.0-54.0) 07/06/16 05:10 MCV 89.7 fL (80.0-100.0) 07/06/16 05:10 MCH 30.0 pg (29.0-35.0) 07/06/16 05:10 MCHC 33.5 g/dL (32.0-36.0) 07/06/16 05:10 RDW 12.6 % (11.5-14.5) 07/06/16 05:10 Plt Count 100 X 10^3uL (130-440) L 07/06/16 05:10 MPV 9.5 fL (7.4-10.4) 07/06/16 05:10 Neutrophils % 60.1 % (54.0-75.0) 07/06/16 05:10 Lymphocytes % 22.9 % (20.0-40.0) 07/06/16 05:10 Eosinophils % 4.8 % (0.0-6.0) 07/06/16 05:10 Basophils % 0.7 % (0.0-2.0) 07/06/16 05:10 Neutrophils # 3.3 X 10^3uL (2.6-6.7) 07/06/16 05:10 Lymphocytes # 1.2 X 10^3uL (0.8-3.8) 07/06/16 05:10 Monocytes 11.5 % (2.0-10.0) H 07/06/16 05:10 Monocytes # 0.6 X 10^3uL (0.2-1.0) 07/06/16 05:10 Eosinophils # 0.3 X 10^3uL (0.0-0.4) 07/06/16 05:10 Basophils # 0.0 X 10^3uL (0.0-0.1) 07/06/16 05:10 ABG pH 7.40 (7.35-7.45) 07/05/16 18:40 ABG pCO2 25.8 mmHg (35-45) L 07/05/16 18:40 ABG pO2 61 mmHg (70-105) L 07/05/16 18:40 ABG HCO3 16 mmol/L (22-26) L 07/05/16 18:40 ABG Total CO2 17 mmHg (23-27) L 07/05/16 18:40 ABG O2 Sat (Calculated) 92 % (95-98) L 07/05/16 18:40 ABG Base Excess -9 (-2-+3) L 07/05/16 18:40 VBG pH 7.34 (7.31-7.41) 07/06/16 12:15 Sodium 135 mmol/L (137-145) L 07/06/16 12:15 Potassium 3.5 mmol/L (3.5-5.1) 07/06/16 12:15 Chloride 107 mmol/L (98-107) 07/06/16 12:15 Carbon Dioxide 24 mmol/L (22-30) 07/06/16 12:15 BUN 30 mg/dL (9-20) H 07/06/16 12:15 Creatinine 1.0 mg/dL (0.7-1.3) 07/06/16 12:15 GFR Calculation > 60 mL/min 07/06/16 12:15 Glucose 136 mg/dL (70-100) H 07/06/16 12:15 Hemoglobin A1c 10.5 % 07/06/16 05:10 Serum Osmolality 291 mOsm/Kg (280-295) 07/06/16 05:10 Calcium 8.1 mg/dL (8.4-10.2) L 07/06/16 12:15 Phosphorus 3.5 mg/dL (2.5-4.5) 07/06/16 05:10 Magnesium 1.7 mg/dL (1.6-2.3) 07/06/16 05:10 Total Bilirubin 0.8 mg/dL (0.2-1.3) 07/06/16 05:10 AST 21 U/L (17-59) 07/06/16 05:10 ALT 40 U/L (21-72) 07/06/16 05:10 Alkaline Phosphatase 60 U/L (38-126) 07/06/16 05:10 Total Protein 5.4 g/dL (6.3-8.2) L 07/06/16 05:10 Albumin 2.9 g/dL (3.5-5.0) L D 07/06/16 05:10 Albumin/Globulin Ratio 1.2 07/06/16 05:10 Beta-Hydroxybutyrate/Acetoacetate 0.12 mmol/L (<0.40) 07/06/16 05:10 Urine Color Yellow 07/05/16 22:50 Urine Appearance Clear 07/05/16 22:50 Urine pH 5.0 (5-7) 07/05/16 22:50 Ur Specific Krebs 1.010 (0.001-1.035) 07/05/16 22:50 Urine Protein Negative (NEG - TRACE) 07/05/16 22:50 Urine Ketones 5mg/dl (NEGATIVE) A 07/05/16 22:50 Urine Blood Negative (NEGATIVE) 07/05/16 22:50 Urine Nitrate Negative (NEGATIVE) 07/05/16 22:50 Urine Bilirubin Negative (NEGATIVE) 07/05/16 22:50 Urine Urobilinogen 0.2mg/dl (normal) (NEG-1mg/dL) 07/05/16 22:50 Ur Leukocyte Esterase Negative (NEGATIVE) 07/05/16 22:50 Urine RBC None seen (0-5/hpf) 07/05/16 22:50 Urine WBC 0-4/hpf (0-4/hpf) 07/05/16 22:50 Ur Squamous Epith Cells None seen (<= 15/hpf) 07/05/16 22:50 Urine Bacteria None seen (<10/hpf) 07/05/16 22:50 Urine Mucus None seen (Up to 25%) 07/05/16 22:50 Urine Glucose 500mg/dl (2+) (NEGATIVE) A 07/05/16 22:50 Assessment and Plan - Date of Encounter Date of Encounter: 07/06/16 (1) hyperosmolar hyperglycemic state Status: Acute Assessment and plan: Well controlled and improved. Off IV insulin. Well hydrated. Current Visit: Yes (2) DM type 2 causing complication Status: Acute Assessment and plan: Improved control Starting Humalog [facility] Diabetic teaching, certified diabetes educator Current Visit: Yes (3) Dehydration Status: Acute Assessment and plan: Improving with IV hydration Current Visit: Yes (4) Hyponatremia Status: Acute Assessment and plan: Improving with IV hydration Current Visit: No (5) HTN (hypertension) Status: Chronic Current Visit: Yes (6) Hyperlipidemia Status: Chronic Current Visit: Yes (7) Hypertriglyceridemia Status: Chronic Current Visit: Yes (8) PVC (premature ventricular contraction) Status: Chronic Current Visit: Yes (9) PAC (premature atrial contraction) Status: Chronic Current Visit: Yes (10) Subclinical hypothyroidism Status: Chronic Current Visit: Yes (11) Obstructive sleep apnea Status: Chronic Current Visit: Yes (12) Restless leg syndrome Status: Chronic Current Visit: No - Time Spent With Patient Total time spent with greater than 50% in coordination of care (as documented) at patient's floor/unit and/or counseling patient: Quality Questions - VTE Prophylaxis Assessment VTE Present on Admission?: No Patient at risk for venous thromboembolism?: No VTE Risk Level: Low Risk Pharmaceutical VTE prophylaxis contraindication reason: not indicated Mechanical VTE prophylaxis contraindication reason: not indicated
[2016-07-06] MEDS ORDERED: INSULIN LISPRO 100 UNIT/ML ML SUBCUT ONE (14:57)
[2016-07-06] MEDS: INSULIN LISPRO 100 UNIT/ML ML SUBCUT SCH ×2 (16:37→21:21)
[2016-07-06 18:18] LABS: CALCIUM 7.9 mg/dL (8.4-10.2); CREATININE 0.9 mg/dL (0.7-1.3); POTASSIUM 3.2 mmol/L (3.5-5.1)
[2016-07-06] MEDS: TERAZOSIN HCL 5 MG CAPSULE PO SCH (21:23)
[2016-07-06] MEDS: LOVASTATIN 20 MG TABLET PO SCH (21:23)
[2016-07-06] MEDS: clonazePAM 0.5 MG TABLET PO SCH (21:49)
[2016-07-07 05:43] LABS: VENOUS PH 7.34 (7.31-7.41)
[2016-07-07 05:44] LABS: VENOUS PH 7.34 (7.31-7.41)
[2016-07-07 05:46] LABS: VENOUS PH 7.36 (7.31-7.41)
[2016-07-07] MEDS: PANTOPRAZOLE 40 MG TABLET PO SCH (06:14)
[2016-07-07 06:36] VITALS: BP 143/86; PULSE 80; RESP 24; TEMP 98.6; O2SAT 93
[2016-07-07 06:38] LABS: RED BLOOD COUNT 5.69 X 10^6uL (4.20-6.10)
[2016-07-07 06:50] LABS: BASOPHILS 0.2 % (0.0-2.0); EOSINOPHILS 4.7 % (0.0-6.0); EOSINOPHILS# 0.4 X 10^3uL (0.0-0.4); HEMATOCRIT 51.1 % (42.0-54.0); HEMOGLOBIN 16.6 g/dL (14.0-18.0); LYMPHOCYTES 15.8 % (20.0-40.0); LYMPHOCYTES# 1.4 X 10^3uL (0.8-3.8); MEAN CELL VOLUME 89.8 fL (80.0-100.0); MEAN CORPUS. HGB CONCENTRATION 32.6 g/dL (32.0-36.0); MEAN CORPUSCULAR HEMOGLOBIN 29.3 pg (29.0-35.0); MEAN PLATELET VOLUME 9.5 fL (7.4-10.4); MONOCYTES 10.7 % (2.0-10.0); NEUTROPHILS 68.6 % (54.0-75.0); NEUTROPHILS# 6.1 X 10^3uL (2.6-6.7); RED CELL DISTRIBUTION WIDTH 12.8 % (11.5-14.5); WHITE BLOOD COUNT 8.9 X 10^3uL (3.9-10.7)
[2016-07-07 07:03] LABS: PLATELET COUNT 70 X 10^3uL (130-440)
[2016-07-07 07:09] LABS: VENOUS PH 7.37 (7.31-7.41)
[2016-07-07] MEDS: NORMAL SALINE 1,000 ML IV SCH (07:32)
[2016-07-07] MEDS: INSULIN LISPRO 100 UNIT/ML ML SUBCUT SCH ×2 (07:45→11:30)
[2016-07-07] MEDS ORDERED: NORMAL SALINE FLUSH 200 ML ONE (08:45)
[2016-07-07 08:56] LABS: A/G RATIO 1.3; ALBUMIN 3.4 g/dL (3.5-5.0); ALKALINE PHOSPHATASE 59 U/L (38-126); ALT 46 U/L (21-72); AST 29 U/L (17-59); BILIRUBIN, TOTAL 0.9 mg/dL (0.2-1.3); BLOOD UREA NITROGEN 16 mg/dL (9-20); CALCIUM 8.5 mg/dL (8.4-10.2); CHLORIDE 108 mmol/L (98-107); CREATININE 0.7 mg/dL (0.7-1.3); EST GLOMERULAR FILTRATION RATE > 60 mL/min; POTASSIUM 3.8 mmol/L (3.5-5.1); SODIUM 138 mmol/L (137-145)
[2016-07-07 09:01] LABS: GLUCOSE 212 mg/dL (70-100)
[2016-07-07] MEDS: [UNRECOGNIZED DRUG - REMARK] PO SCH (09:03)
--- NOTE | 2016-07-08 07:16 | DISCHARGE SUMMARY ---
DATE OF ADMISSION: 07/05/16 DATE OF DISCHARGE: 07/07/16 ATTENDING PHYSICIAN: John Medrano MD DIAGNOSES 1. Suspect early hyperosmolar hyperglycemic state (HHS). 2. New onset type 2 diabetes mellitus. 3. Profound hyponatremia, improved. 4. Profound dehydration, improved. 5. Hypertension. 6. Hyperlipidemia. 7. Hypertriglyceridemia. 8. PVCs. 9. PACs. 10. Subclinical hypothyroidism. 11. Obstructive sleep apnea, positional with restless leg syndrome. HISTORY OF PRESENT ILLNESS: This is a 81-year-old male, who went to the to the [facility] on 07/05/16, at which time blood sugar was noted to be over 500. The patient was referred to the emergency room and was noted to have a serum glucose of 734. The patient was recently hospitalized 06/21/16 with acute bronchitis with associated hypoxia, and was noted to have significant hyperglycemia at that time. The patient was given sub.q insulin sliding scale during his hospital stay. Apparently it was felt that the hyperglycemia at that time was most likely related to the respiratory infection and usage of IV steroids. The plan had been to follow the patient on an outpatient basis and consider initiation of treatment for diabetes at a later date, if so warranted, once the patient was off steroids. The patient completed the prednisone taper as of the day prior to admission. In addition, the patient had some issues with bradycardia related to metoprolol and the dose of metoprolol was reduced from 50 mg down to 25 mg during his hospital stay. The patient reported that since his hospital discharge, he has been feeling poorly, weak, tired, with lack of energy. He has nocturia times 4-5, polyuria, polydipsia, polyphagia and lost about 16 pounds since discharge. No visual problems. The patient was trying to exercise more, eat healthier and had gone back to calorie intact in order to treat the hyperglycemia. No fevers, chills, coryza, cough, shortness of breath or other symptoms suggestive of pneumonia or respiratory symptoms. He did have a bit of a throat irrigation but no actual sore throat. No chest pain, chest pressure, chest tightness or other angina symptoms. No nausea, vomiting, diarrhea, constipation, melena or dysuria. No other obvious source for infection. Please see previously dictated history and physical for further details. HOSPITAL COURSE: The patient was admitted with profound hyperglycemia with serum glucose of 734, consistent with new-onset type 2 diabetes mellitus. It was suspected that the patient had early hyperosmolar hyperglycemic state, found in an elderly patient with new onset type 2 diabetes mellitus. Criteria for hyperosmolar hyperglycemic crisis were reviewed and the patient appeared to meet most of these criteria and/or met borderline criteria. I suspect that the HHS was still early and elected to treat this in [place] with close monitoring. We used the [facility] protocol for hyperosmolar hyperglycemic state (similar to the diabetic ketoacidosis protocol) and were conscientious about the need for large amounts of IV fluids to hydrate this patient. By the next day, blood sugars were down to the 100-200 range, he was off IV insulin and had been converted to sub.q insulin Humalog per sliding scale. Patient was well hydrated and IV fluids were able to be slowed down. Lab work improved, in particular with respect to his prerenal azotemia, hyponatremia and hypokalemia. He was able to tolerate a clear liquid diet, and diet was advanced as tolerated. His sodium improved from 122 on admission to 138 by the time of discharge. Potassium improved from 2.9 to 3.8 by the time of discharge. BUN/ creatinine improved from 45/1.2 on admission to 16/0.7 by the time of discharge. Gluoscans were in the 109-212 range in the last 24 hours. Note that beta-hydroxybutyrate acetoacetate was 1.07 on admission. Magnesium was 1.7 and phos was 3.5. pH was 7.40 at time of admission and remained in the 7.31-7.39 range throughout his stay. Calculated serum osmolality was 309 and measured serum osmolality was 318. Diabetic nurse educator provided appropriate diabetic teaching to patient and . At this time, patient is felt to be sufficiently safe to be discharged to home. Patient will need to be monitored closely on an outpatient basis for evidence of recurrence of profound hyperglycemia. DISCHARGE INSTRUCTIONS: The patient may participate in activities as able. He is on a low-salt, low-cholesterol ADA diet. He has a follow up appointment with [employer] Dr. Morris 07/08/16. He has a follow up appointment with Dr. Medrano on 07/11/16. DISCHARGE MEDICATIONS Fluticasone nasal inhaler 2 sprays each nostril daily PRN. Indomethacin 50 mg p.o. t.i.d. PRN. Clonazepam 0.5 mg p.o. q.h.s. Gemfibrozil 600 mg p.o. b.i.d. Lovastatin 10 mg p.o. q.h.s. Omeprazole 20 mg p.o. daily. Colchicine/Probenecid 0.5/500 mg 1 tab p.o. daily. Terazosin 5 mg p.o. q.h.s. Sildenafil 100 mg p.o. daily PRN. Metoprolol tartrate ER 50 mg tab p.o. daily. ProAir HFA inhaler 2 puffs q.i.d. PRN. Spiriva 18 mcg inhalation 2 puffs daily. Testosterone 200 mg IM q.2 weeks. Turmeric 500 mg p.o. daily. Insulin Lispro (Humalog) kwik pen U-100 q.a.c. and q.h.s. sub.q per sliding scale: blood glucose less than 70 give orange juice; blood glucose 70-150 give 0 units; blood glucose 151-200 give 2 units; blood glucose 201-250 give 4 units ; blood glucose 251-300 give 6 units; blood glucose 301-350 give 8 units, blood glucose 351-400 units give 10 units. Copies to: Dr. Morris (fax draft to 07/08/16 a.m.), Dr. Conley, Dr. Carson (Classroom Aide) [facility]
== END 2016-07-07 14:00 | disposition home or self-care (01) | DRG 638 ==
LOC: ER 16:37 → IN 20:00
PROVIDERS: ADMIT Family Medicine; ATTEND Family Medicine
DX: E11.00 Type 2 diabetes mellitus with hyperosmolarity without nonketotic hyperglycemic-hyperosmolar coma (NKHHC) (principal); E87.1 Hypo-osmolality and hyponatremia; E86.0 Dehydration; I10 Essential (primary) hypertension; E78.5 Hyperlipidemia, unspecified; E03.9 Hypothyroidism, unspecified; G47.33 Obstructive sleep apnea (adult) (pediatric); I49.3 Ventricular premature depolarization; I49.8 Other specified cardiac arrhythmias; G25.81 Restless legs syndrome; M10.9 Gout, unspecified; M15.9 Polyosteoarthritis, unspecified; K21.9 Gastro-esophageal reflux disease without esophagitis; Z79.899 Other long term (current) drug therapy
CPT/HCPCS: 36415; 36600; 80048; 80053; 81001; 82010; 82800; 82803; 83036; 83735; 83930; 84100; 85025; 93010; 93041; 96361; 96374; 99285; G0108; J1815; J7030